=== PATIENT | female | born 1935 | race Caucasian/White ===

== ENCOUNTER 2016-12-30 22:04 | Observation (INO) | payer MEDICARE, OTHER ==
[~2016-12-30] VITALS: Ht 154.9 cm; Wt 70.2 kg
--- NOTE | ~2016-12-30 | CON ---
PATIENT'S NAME: DEVONTE ROOT [facility] AGE: 81 Y [address] ROOM: [id number] [place], [place] [address] LOCATION: GPCU ADMIT DATE: 12/30/2016 Consultation DISCHARGE DATE: FAMILY PHYSICIAN: LARRY DEE MD ATTENDING PHYSICIAN: LARRY DEE DATE OF CONSULTATION: 12/30/2016 TIME SEEN: 11:00 p.m. HISTORY OF PRESENT ILLNESS: Ms Root is a healthy 81-year-old female with a prior medical history of some mild hypertension on losartan. She rarely had any medical history other than brief admission in the emergency room for a pneumonia back in November. The patient states that she was in her usual state of health this evening, actually had a dinner with her , and multiple persons from the clergy over her home. She had a nice dinner and after cleaning the dishes, went to watch television. While watching television, she noted that she could not get words out and her words were confused. Syntax of the words were completely mixed up and she had neologisms for many of the words. Her speech really was not slurred, but more consistent with an aphasia. She came in to the emergency room for evaluation about 2 hours after the event and the aphasia was still present, but much more mild. She scored a 2 on the NIH stroke scale and I scored her a 1 just for the subtle aphasia. She did not have any weakness of the face or of the limbs. No evidence of even a pronator drift. She was noted to be in sinus rhythm at 69 to 70 beats per minute. Occasional PAC were seen on the rhythm, but otherwise the rhythm remained stable. Blood pressure was elevated to 179 systolic. She was afebrile. She was alert and oriented and was able to speak in full sentences, but had clearly some difficulty in word finding at times. Due to the fact that the patient was making rapid recovery and only had a very subtle word-finding deficit, but was able to read full sentences, identify objects, and do cross-body commands very well. She would not be a candidate for tPA. CAT scan of the brain did not show any evidence of a stroke nor any evidence of a bleed. There was an increased signal of hyperdensities seen in the right frontal region of the brain likely consistent with the patient having a coil placed a number of years ago, perhaps nearly 10 years ago. The rest of the brain appeared to be within normal limits for the patient of 81 years old. PRIOR MEDICAL HISTORY: She has a history of hypertension. MEDICATIONS: She is maintained on: PATIENT'S NAME: DEVONTE ROOT [facility] AGE: 81 Y [address] ROOM: [place] [address] LOCATION: GPCU ADMIT DATE: 12/30/2016 Consultation DISCHARGE DATE: FAMILY PHYSICIAN: LARRY DEE MD ATTENDING PHYSICIAN: LARRY DEE 1. Losartan. 2. Baby aspirin 81 mg p.o. daily. ALLERGIES: SHE HAS NO KNOWN DRUG ALLERGIES. FAMILY HISTORY: Noncontributory here. She is for 63 years. She had 1 adopted son who recently became estranged from her and her . She was born in [place] with her and resides here in [place]. She is under the care of Dr. Dee. REVIEW OF SYSTEMS: The patient has a mild history of hypertension, otherwise is healthy. She is active. She has no evidence of dementia. She presented with acute onset of only an aphasia this evening with difficulty with mixing up solely words, difficulty with getting out particular words, but not having slurring, but actual syntax of words and context of words were getting mixed easily. When I saw the patient, she scored a 1 for basic mild aphasia. She presented with an elevation in her blood pressure of 179 systolic. She is otherwise doing better now and was conversational. She had no new evidence of any weakness or sensory numbness. PHYSICAL EXAMINATION: VITAL SIGNS: Revealed a pulse of 69 and regular; respiration rate 16; blood pressure 179/98; temperature is afebrile. NEUROLOGICAL: Cranial nerves 2 through 12 was intact. Motor exam revealed normal bulk and tone of the upper and lower extremities proximally and distally. There was no evidence of any pronator drift. There is full power in the proximal and distal muscles of 5/5 grade. Normal sensory exam to light touch. Rapid alternating hand movements were normal. Normal kapigs-od-toxt and uwlr-im-uabw without any evidence of dysmetria. IMPRESSION: Likely based upon the patient's symptoms. She still does have some subtle signs of aphasia. She may have had a small stroke into the left brain, potentially into the left insular of the brain or some subcortical regions such as the thalamus. However, this would not show up on the CAT scan. Because of the history of a metallic coil, she cannot have an MRI, and she is fairly clear to that though we may be able to check with her surgeon, Dr. Jordi Cha in [place] where the coil was placed at least 10 years ago, though it is not believed to be compatible with an MRI. I would assume that this was a small stroke to the insular and there is the likelihood that it may have been set off by an arrhythmia, though the patient is in sinus rhythm, she will be monitored on the floor with telemetry. If no evidence of arrhythmia PATIENT'S NAME: DEVONTE ROOT [facility] AGE: 81 Y [address] ROOM: [id number] [place] [id number] [facility] AD[facility] DATE: 12/30/2016 Consultation DISCHARGE DATE: FAMILY PHYSICIAN: LARRY DEE MD ATTENDING PHYSICIAN: LARRY DEE is found, she still should be considered for an event monitor for course of at least 4 weeks. I recommend that she continue with her baby aspirin at this time. We will do a basic carotid ultrasound study though this is not necessarily urgent at this time nor would an echocardiogram be necessarily absolutely urgent at this workup. Since the patient does have still some neurological deficits, I did tell her that her aphasia may wax and wane during the course of the evening. We will give her IV fluids to maintain her blood pressure at least overnight in a range of 150s to 180. We will follow up with Ms Root on neurologic consultation in the a.m. MD ANNEL CAMPBELL/madelynl /[id number] d: 12/31/16 0632 t: 01/10/17 1544, CONSULTATION REPORT
--- NOTE | ~2016-12-30 | ER ---
PATIENT'S NAME: DEVONTE HEATON [facility] AGE: 81 Y [address] ROOM: [place] [address] LOCATION: GPCU ADMIT DATE: 12/30/2016 ER/Outpatient Report DISCHARGE DATE: FAMILY PHYSICIAN: LARRY DEE MD ATTENDING PHYSICIAN: LARRY DEE Time of Arrival: 2204 hours. Time of Evaluation: 2204 hours. CHIEF COMPLAINT: Slurred speech. HISTORY OF PRESENT ILLNESS: The patient's reports that they had a big day with family today. They had cooked a bunch of food and had a big dinner tonight and then around 8 o'clock, the patient began complaining of a headache and he noticed that she was having difficulty talking. She could not get her words formed and out. She was aware of the fact that she was not expressing herself appropriately and would have to stop and think about what it was she wanted to say. She said the headache is better at this time, approximately 2 hours later from the onset of symptoms, but she continues to have difficulty talking. She denies having any pain, has not had any chest pain. Does not feel short of breath. Has not had any vision changes. Denies any difficulty swallowing. Has not felt nauseated. Has not vomited. Denies being dizzy. Has not had any change in her ability to move her extremities or to walk. MEDICATIONS: On her chart and reviewed by me. ALLERGIES: ON HER CHART AND REVIEWED BY ME. PAST MEDICAL HISTORY: Valley fever, hypertension, diverticulosis, diverticulitis, right breast cancer, hypertension, cerebral aneurysm. PAST SURGERIES: Include coil for a brain aneurysm, cholecystectomy, appendectomy, right breast lumpectomy, right lung lobectomy, heart catheterization, hysterectomy. SOCIAL HISTORY: She lives at home with her . She quit smoking 20 years ago. Denies use of drugs. She has alcohol on a rare basis. ROS: PATIENT'S NAME: DEVONTE HEATON [facility] AGE: 81 Y [address] ROOM: [place] [address] LOCATION: GPCU ADMIT DATE: 12/30/2016 ER/Outpatient Report DISCHARGE DATE: FAMILY PHYSICIAN: LARRY DEE MD ATTENDING PHYSICIAN: LARRY DEE All negative other than those mentioned in the HPI. PHYSICAL EXAMINATION: VITAL SIGNS: She weighed 70.3 kg; blood pressure 179/98; pulse is 76; respirations 16; temperature of 98.1, tympanic; O2 saturations 97% on room air. GENERAL: She is awake, alert, oriented x4. SKIN: [place], warm, and dry. RESPIRATIONS: Even and nonlabored. HEENT: Pupils are equal and reactive to light. Extraocular movement is intact. She has symmetrical raising of her eyebrows. Closes her eyes tightly symmetrically. Her smile is symmetrical. When doing the NIH stroke scale, she is able to pass everything except for the language. She knew the President was Trump, but she could not get the word Trump out and she had difficulty stating the names of some of the pictures. She states, like with the hammock that it was something that you sleep in, but it took her a while to come up with a word hammock. She had no drift of her arms, no drift of her legs. HEART: Regular rate and rhythm. LUNGS: Clear throughout. ABDOMEN: Soft and nondistended. Bowel sounds are present. LABORATORY DATA AND X-RAYS: IMPRESSION: Aphasia EMERGENCY DEPARTMENT COURSE: Saline lock was initiated. Lab was drawn. CBC is within normal limits. Renal panel: Sodium is 140, potassium is 4.0, chloride are 106. Her BUN is 17, creatinine is 0.7. Troponin is less than 0.040. EKG shows sinus rhythm with first-degree AV block. The patient was to CT scan. CT reports no acute intracranial process. DISPOSITION/FOLLOW-UP: Dr. Edgar was contacted. He did come in and examine the patient. Her NIH stroke scale for me was 2, Dr. Edgar got 1. She continued to deny any chest pain. Does have a mild headache. She was given Tylenol 1000 mg for that. Fluids of normal saline at [address] Dee was contacted. The patient to be admitted and consult with Dr. Edgar. The patient and family are aware of plan of care. AMANDA VERMA APRN FOR FÉLIX GREWAL MD PATIENT'S NAME: DEVONTE HEATON [facility] AGE: 81 Y [address] ROOM: [address] [address] [facility] AD[facility] DATE: 12/30/2016 ER/Outpatient Report DISCHARGE DATE: FAMILY PHYSICIAN: LARRY DEE MD ATTENDING PHYSICIAN: LARRY DEE/madelynl /[id number] d: 12/31/16 0557 t: 01/02/17 1925, OUTPATIENT REPORT
[2016-12-30 22:26] LABS: BASOPHIL # 0.2 K/uL (0.0-0.2); BASOPHIL % 1.6 %; EOSINOPHIL # 0.3 K/uL (0.0-0.5); EOSINOPHIL % 3.2 %; HEMATOCRIT 42.2 % (30.0-46.0); HEMOGLOBIN 14.3 g/dL (10.0-15.0); IMMATURE GRANULOCYTE % 0.2 %; MCHC 33.9 gm/dL (32.0-36.5); MCV 94.4 fl (83.0-98.0); MONOCYTE # 0.9 K/uL (0.0-1.0); MONOCYTE % 8.6 %; MPV 10.6 fl (9.4-12.4); NEUTROPHIL # (ANC) 5.7 K/uL (1.8-7.8); NEUTROPHIL % 56.4 %; NRBC % 0 /100WBC (0-0.00); PLATELET COUNT 231 K/uL (150-450); RBC 4.47 M/uL (3.00-5.00); RDW-CV 12.2 % (11.9-14.6); WBC 10.1 K/uL (4.0-11.0)
[2016-12-30 22:33] LABS: PROTIME 10.1 SECONDS (9.6-11.1); PTT 29 SECONDS (25-32)
[2016-12-30 22:42] LABS: ALBUMIN 4.1 gm/dL (3.5-5.0); BLOOD UREA NITROGEN 17 mg/dL (6-24); CALCIUM 10.3 mg/dL (8.5-10.5); CHLORIDE 106 mMol/L (96-110); CO2 22 mMol/L (22-32); CREATININE 0.7 mg/dL (0.5-1.1); ESTIMATED GFR (MDRD EQUATION) > 60; SODIUM 140 mMol/L (135-145)
[2016-12-31] MEDS ORDERED: COZAAR50 MG PO
--- NOTE | 2016-12-31 01:43 | NUR ---
Pt admitted from ED via . Transported by transport staff. Pt assisted to bed from . NS 250 bolus infusing. VS taken. Con't on RA. Only skin issues noted was scab to back of head-pt states from hairspray/shampoo. NIH scale 3. NTU RN to evaluate as well. MD Gentile called for orders.
--- NOTE | 2016-12-31 04:49 | NUR ---
Pt currently obs status. VSS on RA, afebrile. Pt admitted post TIA-still suffereing from aphasia/word salad this am. SBA with FWW to RR. SL 18g to RAC.needs home meds addressed by rx. Need data base 1 finished when family is here as pt unable to complete d/t word salad. Plan: Leila/Herve to see today and form treatment plan
[2016-12-31] MEDS ORDERED: FISH OIL 1,0001 EAC1 PO (09:22)
[2016-12-31] MEDS ORDERED: ROSUVASTATIN CAL5 MG PO (09:22)
[2016-12-31] MEDS ORDERED: ASCORBIC ACID500 MG PO (09:23)
[2016-12-31] MEDS ORDERED: VITAMIN D1000 UNIT PO (09:23)
[2016-12-31] MEDS ORDERED: VITAMIN E400 UNI2 PO (09:24)
[2016-12-31] MEDS ORDERED: TYLENOL EXTRA500 MG PO (09:24)
== END 2016-12-31 15:40 | disposition disaster alternative care site (69) ==
LOC: GMED 22:04 → GPCU 23:30
PROVIDERS: Emergency Medicine; ADMIT Family Medicine
DX: G45.9 Transient cerebral ischemic attack, unspecified (principal); R47.01 Aphasia; I10 Essential (primary) hypertension; Z79.82 Long term (current) use of aspirin; Z79.899 Other long term (current) drug therapy; Z88.1 Allergy status to other antibiotic agents; Z88.2 Allergy status to sulfonamides; Z88.8 Allergy status to other drugs, medicaments and biological substances
CPT/HCPCS: G0378; G8978; G8979; G8980; G8993; G8994; G8995; J7050

== ENCOUNTER 2017-01-03 16:42 | Inpatient (IN) | payer MEDICARE, OTHER ==
[~2017-01-03] VITALS: Ht 160 cm; Wt 66.9 kg
--- NOTE | ~2017-01-03 | CON ---
PATIENT'S NAME: DEVONTE HEATON [facility] AGE: 81 Y [address] ROOM: [place] [address] LOCATION: GNTU ADMIT DATE: 01/03/2017 Consultation DISCHARGE DATE: 01/09/2017 FAMILY PHYSICIAN: LARRY HERNANDEZ MD ATTENDING PHYSICIAN: THELMA HERNANDEZ Corrected signature line 01/10/17 AO DATE OF CONSULTATION: 01/05/2017 REFERRING PHYSICIAN: Darwin Matias MD LOCATION: Neurotrauma Unit, room 6230. REFERRING PROVIDER: Dejan Carey MD CHIEF COMPLAINT: Palliative care referral for goals of care discussion and tube feeding discussion with family. HISTORY OF PRESENT ILLNESS: The patient is an 81-year-old female with a history of hypertension, a remote history of a cerebral aneurysm, and a recent observation admission to the hospital for TIA workup. The patient was brought to the emergency room by her after she was noted to have difficulties expressing herself and some confusion. 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 At the time of this consult, the patient is in the neuro trauma unit. She has severe aphasia. She is able to answer a few yes/no questions. She tracks with her eyes, is quite drowsy. Does not consistently follow commands. She does have right-sided neglect as well as right-sided weakness. She had recently gone down for a modified barium swallow study, which was positive for aspiration of all consistencies except for semisolid foods. Her family is at bedside and are requesting assistance with goals of care conversation. PREVIOUS SURGICAL HISTORY: 1. Cerebral coil. 2. Right lung resection. 3. Cholecystectomy. 4. Appendectomy. 5. Hysterectomy. 6. Bilateral cataracts. 7. Colon resection for diverticuli. PAST MEDICAL HISTORY: PATIENT'S NAME: DEVONTE HEATON [facility] AGE: 81 Y [address] ROOM: [place] [address] LOCATION: GNTU ADMIT DATE: 01/03/2017 Consultation DISCHARGE DATE: 01/09/2017 FAMILY PHYSICIAN: LARRY HERNANDEZ MD ATTENDING PHYSICIAN: THELMA HERNANDEZ 1. Hypertension. 2. History of breast cancer. 3. History of cerebral aneurysm status post coiling. 4. Hypercholesterolemia. 5. Depression. MEDICATIONS: Home Medication List: 1. Tylenol 1000 mg every 6 hours as needed. 2. Ascorbic acid 500 mg p.o. daily. 3. Aspirin 81 mg p.o. daily. 4. Vitamin D3 1000 units p.o. daily. 5. Vitamin B12 500 mcg p.o. daily. 6. Cozaar 50 mg p.o. daily. 7. Fish oil 2000 mg p.o. daily. 8. Rosuvastatin 5 mg p.o. daily. 9. Vitamin E 400 mg p.o. daily. ALLERGIES: TO IODINE, SULFA, DOXYCYCLINE, CLINDAMYCIN, ADHESIVE TAPE, CLARITHROMYCIN, CEFPROZIL, AZITHROMYCIN, LEVOFLOXACIN, MELOXICAM, TERBINAFINE. SOCIAL HISTORY: The patient is and lives with her here in [place]. They have one adopted son, who lives in [place], have one grandson and one great grandson. She has a history of smoking two packs a day for 40 years. She quit a number of years ago. Has a past history of alcohol use, none recent. FAMILY HISTORY: Mother had a history of lung resection and father had heart disease. She also has a younger brother, who had cancer. REVIEW OF SYSTEMS: All other systems reviewed and are negative except for as noted in HPI. PHYSICAL EXAMINATION: VITAL SIGNS: Blood pressure 165/70, heart rate 72, temperature 98.6, respirations 23, O2 saturations 96% on room air. GENERAL: Reveals a drowsy though easily arousable, elderly white female, who is lying in the hospital bed, does not appear to be in any acute distress. She is severely aphasic. She does not verbalize anything for me. HEENT: Normocephalic, atraumatic. Pupils are equal, left is reactive, right is sluggish. She does have a slight facial droop. She has right-sided neglect. Tongue and mucous membranes are moist and pink. Dentition is adequate. PATIENT'S NAME: DEVONTE HEATON [facility] AGE: 81 Y [address] ROOM: [place] [address] LOCATION: [facility] ADMIT DATE: 01/03/2017 Consultation DISCHARGE DATE: 01/09/2017 FAMILY PHYSICIAN: LARRY HERNANDEZ MD ATTENDING PHYSICIAN: THELMA HERNANDEZ CARDIOVASCULAR: Heart tones are regular rate and rhythm. I am not able to note any murmur. RESPIRATORY: Respirations are regular and nonlabored. Lung sounds are clear to auscultation bilaterally. She does have a moist cough at times. GASTROINTESTINAL: Abdomen is soft, nontender. Bowel sounds are present. GENITOURINARY: Guzman catheter is intact with adequate amounts of yellow urine. MUSCULOSKELETAL: No significant joint deformities. Peripheral pulses are strong and equal bilaterally. There is no clubbing, cyanosis, or edema. SKIN: Warm and dry. No lesions or rashes. NEUROLOGIC: The patient has right-sided weakness, right-sided neglect. Pupils are equal, but right side is sluggish. She is severely aphasic. IMPRESSION AND PLAN: 1. Aphasia, speech therapy is on board. 2. Dysphagia, speech therapy is on board. Recent modified barium swallow results reviewed. 3. 4. Weakness, PT/OT on board. 5. Code status. The patient is a DNR/DNI. Does have an advance directive on her chart, which states that the patient does not want tube feedings or any artificial nutrition that would prolong her life in a terminal or debilitated state. Family have reviewed her advance directive and are wishing to honor her stated wishes. I did meet with the patient's as well as son, opaoofub-ko-tic, and grandson, discussed their understanding of her condition and prognosis for recovery. They seem to have a very good understanding of what is going on. They do not think that given the patient's state and poor likely for good recovery, she would not want artificial nutrition to prolong her life, which is what is noted in her advance directive. Family ask about other feeding options as they do not want her to starve to either. Discussed the results of the modified barium swallow study, which showed aspiration of all consistencies except semi solid foods, discussed the option of very careful hand feeding but that the patient would still remain at a very high risk for aspiration despite careful hand feeding. I discussed with the family that aspiration would most likely result in pneumonia and an eventual . At this point, family states they are willing to take this risk as they do not feel as she would be happy with this type of lifestyle or this quality of life. Discussed with the family the possibility of placing a short-term [place] and giving her a chance of some rehabilitation, provided education that this would not be a permanent thing and we would give her a chance to see how well she is going to do. Family at this point are feeling that would only prolong this whole situation. The family is stating that at this point goal is for comfort and to not prolong life. Given all this, I did discuss hospice services at a fdc versus a skilled stay. Family plans to look at nursing homes later today. I did update PATIENT'S NAME: DEVONTE HEATON [facility] AGE: 81 Y [address] ROOM: [place] [address] LOCATION: [facility] ADMIT DATE: 01/03/2017 Consultation DISCHARGE DATE: 01/09/2017 FAMILY PHYSICIAN: LARRY HERNANDEZ MD ATTENDING PHYSICIAN: THELMA HERNANDEZ care center manager, [place] to this. I also coordinated care with speech therapy, care management, and hospitalist services, discussed with them my discussion with the family as far as the goal being for comfort and they would like to look at trying to start the patient on some sort of diet once we feel it is safe as possible. At this point, it sounds as though family is most likely looking at hospice services at time of discharge, but we will see how the next few days go as far as whether the patient may be able to participate in some therapies. We will continue to follow this patient and family for continued goals of care support and emotional support. Family is very understanding to this situation but is also quite emotional at the same time. Total visit was 50 minutes. Greater than 50% of this time was spent providing education, counseling, and emotional support. Thank you for allowing me to assist this patient and family. NETTE DE LOS SANTOS NP FOR MD SARAH BURNS/waleska /[id number] CC: Dejan Carey MD Corrected signature line 01/10/17 AO d: 01/06/17 1906 t: 01/18/17 0741, CONSULTATION REPORT
--- NOTE | ~2017-01-03 | DS ---
PATIENT'S NAME: DEVONTE HEATON [facility] AGE: 81 Y [address] ROOM: [facility] [place], [place] [address] LOCATION: GNTU ADMIT DATE: 01/03/2017 Discharge Summary DISCHARGE DATE: 01/09/2017 FAMILY PHYSICIAN: Aldo Dee MD ATTENDING PHYSICIAN: Thelma Babcock ADDENDUM: Please refer to dictation by Dr. Palencia for hospital course. In summary, the patient was able to be transferred to transitional care unit on comfort measures on 01/09/2017. Hospitalist will continue to follow as well as Palliative Care. MEDICATIONS AT THE TIME OF DISCHARGE: 1. Acetaminophen 650 mg rectally q.4 hours p.r.n. 2. Acetaminophen 650 mg orally q.4 hours p.r.n. 3. Atropine drops 1 to 2 q.4 h. p.r.n. 4. Dulcolax 10 mg rectally p.r.n. 5. Haloperidol 1 mg p.o. q.1 hour p.r.n. 6. Haloperidol 1 mg subcu q.1 hour p.r.n. 7. Haloperidol 1 mg IV q.1 hour p.r.n. 8. Levsin 0.125 sublingual q.4 hours p.r.n. 9. Lorazepam 0.5 mg IV q.4 hours p.r.n. 10. Lorazepam 0.5 mg q.2 hours p.o. or sublingual p.r.n. 11. Morphine sulfate 1 to 2 mg q.1 hour subcu p.r.n. 12. Morphine sulfate 5 mg p.o. or sublingual q.1 hour p.r.n. 13. Morphine sulfate 2 mg IV q.1 hour p.r.n. 14. Phenergan 12.5 q.12 hours rectally p.r.n. We do appreciate participating in this patient's care, and thank you very much for the ability to serve them while hospitalized at [facility]. Please refer to Dr. Palencia's dictation for time of service. ARUN MARISCAL FOR THELMA BABCOCK MD CINDA/modl /[id number] d: 01/10/17 1117 t: 01/11/17 1030, DISCHARGE SUMMARY
--- NOTE | ~2017-01-03 | DS ---
PATIENT'S NAME: DEVONTE HEATON [facility] AGE: 81 Y [address] ROOM: [place] [address] LOCATION: [facility] ADMIT DATE: 01/03/2017 Discharge Summary DISCHARGE DATE: FAMILY PHYSICIAN: Aldo Dee MD ATTENDING PHYSICIAN: Tonny Babcock This is an interim discharge summary given that I will not be here tomorrow because we changed shift. This summary will serve as the interim summary for the hospitalist, who is coming on tomorrow to take care of the patient. Full updates or changes and actual date of discharge and discharge medication will be dictated by the discharging hospitalist. Date of discharge to be determined. DISCHARGE DIAGNOSES: 1. 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 2. 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 3. Severe left internal carotid artery stenosis and possibly total occlusion. PAST MEDICAL HISTORY: 1. Hypertension. 2. History of breast cancer. 3. History of TIA. 4. Hyperlipidemia. 5. Diverticulosis. 6. History of cerebral aneurysm, status post clipping in the past. FOLLOWUP PLAN: The patient is currently DNR and DNI and also on comfort measure only. Palliative Care has already been following up with the patient. The plan will be continue to touch base with the Palliative Care on January 09, 2017, regarding further plan of care including disposition to transitional care unit to continue comfort measure only or looking for hospice care in another place or keep the patient here, continue comfort measure only care in the neuro trauma unit. Please also touch base with the family member including the patient's and the patient's son. I have already spoken to the patient's , and the patient's son, who are all in agreement with the current comfort measure only care. PATIENT'S NAME: DEVONTE HEATON [facility] AGE: 81 Y [address] ROOM: [place] [address] [facility] ADMIT DATE: 01/03/2017 Discharge Summary DISCHARGE DATE: FAMILY PHYSICIAN: Aldo Dee MD ATTENDING PHYSICIAN: Tonny Babcock DISCHARGE MEDICATIONS: Discharge medications will be dictated by the discharging hospitalist on the actual day of discharge. INVESTIGATIONS DURING HOSPITALIZATION: 1. Chest x-ray on January 03, 2017, shows stable, no acute chest. 2. CT of the brain without contrast on January 03, 2017, shows evolving infarct in the left middle cerebral distribution at the parietal lobe. No hemorrhage. 3. CT of the brain without contrast on January 04, 2017, shows large evolving ischemic infarct in the left posterior cerebral. Infarct territory is more prominent than was evident on a day prior. No hemorrhage. 4. Modified barium swallow test on January 04, 2017, shows positive for aspiration. 5. Head CT without contrast on January 07, 2017, shows large evolving ischemic infarct in the left hemisphere and progress with more infarct territory evident compared with 3 days ago and further density of infarct resulting in swelling and early mass effect, which is worsened. There may be small petechial hemorrhagic transformation within the infarct territory of the left occipital lobe. LABORATORY DATA: Troponin on admission less than 0.04. On admission, white blood cell 8.8, hemoglobin 14.2, hematocrit 42.3, MCV 94.8, platelet 243. On January 05, 2017, white blood cell 11.9, hemoglobin 13.6, hematocrit 40.1, MCV 94.4, platelet 222. On admission, glucose 112, BUN 15, creatinine 0.6, sodium 142, potassium 4.1, chloride 110, CO2 of 25, calcium 10.3. On January 05, 2017, glucose 118, BUN 8, creatinine 0.5, sodium 141, potassium 3.7, chloride 110, CO2 of 23, calcium 9.3. GFR more than 60 on admission and also on January 05, 2017. LDL 66, HDL 52, triglyceride 118, total cholesterol 141 on January 04, 2017. INR 0.9 on admission. Urinalysis, negative for UTI. CONSULTATION INVOLVING CARE: 1. Palliative Care. 2. Neurology, Dr. Edgar. 3. Hospitalist Team. 4. Vascular Surgery, Dr. Mathtews. 5. Rehabilitation physician, Dr. Matias. ADMISSION HISTORY AND HOSPITAL COURSE: For the complete history and physical, refer to history and physical dictated on the day of admission by Dr. Babcock on January 03, 2017. In summary, this is an 81-year-old female with past medical history as mentioned above, who was recently admitted here for TIA workup and was discharged and came back here with an over a day of confusion and slurred PATIENT'S NAME: DEVONTE HEATON [facility] AGE: 81 Y [address] ROOM: [place] [address] LOCATION: [facility] ADMIT DATE: 01/03/2017 Discharge Summary DISCHARGE DATE: FAMILY PHYSICIAN: Aldo Dee MD ATTENDING PHYSICIAN: Tonny Babcock and was brought here for evaluation and was admitted for the diagnoses mentioned in the discharge diagnoses. 1. Regarding her large ischemic cerebrovascular accident in left temporal lobe, left parietal and left occipital lobe, and left insula, and left caudate with petechial hemorrhagic transformation in the left occipital lobe with brain swelling and early mass effect in the left temporal lobe: The patient has a poor prognosis. The patient deteriorated quickly during this admission. The patient was initially treated with standard ischemic stroke protocol with permissive hypertension as well as aspirin and also statin. The patient was also getting Physical Therapy and Occupational Therapy. The patient's condition deteriorated quickly. The patient was never verbal and never oriented x3 since admission. Initially, the patient was going to get a full stroke workup including transthoracic echo as well as CTA of the carotid arteries. However, given that the patient's condition deteriorated quickly and the prognosis is very guarded, therefore, family meeting took place, and I personally spoke to Dr. Edgar as well with the patient, the patient's , and the patient's son. In this case, the patient's son is the power of managing attorney. Given that the patient is nonverbal and not following commands and refused to eat and also failed modified barium swallow test with high aspiration risk and not following commands, Palliative Care was also consulted, and after the long family meeting, both the patient's and the patient's son, who is the power of managing attorney, all agreed to move towards comfort measure only. The patient's and the patient's son were clearly asked if they wanted us to continue aggressive care including Neurosurgery consult, however, due to the poor condition and the poor quality of life, both the patient's son and the patient's did not want to pursue any more further imaging tests or any more invasive procedures or testings or treatments. Therefore, the patient was put on comfort measure only, and the plan right now will be followup with Palliative Care on Monday, January 09, 2017, regarding next step in care including disposition either to transitional care unit or to outside hospice care or to home hospice care or any other option regarding her planning. MRI was never performed given that the patient had clips placed in her brain before and prior history of cerebral aneurysm. Therefore, MRI was contraindicated. CTA was also not performed given that, at this point, the patient is on comfort measure only. There is no point in moving forward with a CTA of the carotid arteries because the patient is already comfort measure only. The patient will not be transferred to the rehab facility [facility] given that the patient is comfort measure only and recovery of her neurological function at this moment is poor. 3. I have updated the patient's son and the patient's on the phone PATIENT'S NAME: DEVONTE HEATON [facility] AGE: 81 Y [address] ROOM: [place] [address] LOCATION: [facility] ADMIT DATE: 01/03/2017 Discharge Summary DISCHARGE DATE: FAMILY PHYSICIAN: Aldo Dee MD ATTENDING PHYSICIAN: Tonny Babcock several times regarding her condition, and both still agree to move forward with the comfort measure only. Therefore, the patient is currently on comfort measure only. Any further changes or updates will be dictated by the hospitalist working next week. Time spent on the day of dictation and taking care of the patient 45 minutes including updating the patient's son and the patient , and confirming they wanted to move forward with the comfort measure only and addressing all of their questions and concerns to their satisfaction. DANYELLE SULLIVAN MD CC/modl /[id number] d: 01/08/172210 t: 01/19/17 0213, DISCHARGE SUMMARY
--- NOTE | ~2017-01-03 | HP ---
PATIENT'S NAME: DEVONTE HEATON [facility] AGE: 81 Y [address] ROOM: [address] [address] LOCATION: [facility] ADMIT DATE: 01/03/2017 History & Physical DISCHARGE DATE: FAMILY PHYSICIAN: LARRY HERNANDEZ MD ATTENDING PHYSICIAN: THELMA HERNANDEZ DATE OF SERVICE: CHIEF COMPLAINT: Acute CVA, global aphasia. HISTORY OF PRESENT ILLNESS: This is an 81-year-old female with history of hypertension, remote history of cerebral aneurysm, and recent admission and discharge from the hospital for TIA workup. She was brought to the emergency room by her after she was noted to have difficulty in her speech, since early hours of this morning. The patient upon arrival to the emergency room, later in the afternoon, was noted to have trouble expressing herself and getting her words out and subsequently was noted to be confused and unable to communicate at all. During my evaluation, the patient was awake; however, did not follow any command, and was not able to tell me her name or did not appear to look like she was comprehending my interaction with her. The patient's was sitting by the bedside, tells me that the last time he had seen her in her usual stage of health was yesterday afternoon, and onset of her symptoms at this time around was later in the evening yesterday, which significantly got worse in the morning. The patient had presented with a slurring of her speech on Monday and was admitted overnight for observation for TIA stroke workup and was discharged the next day. PAST MEDICAL HISTORY: Hypertension, history of breast cancer, history of cerebral aneurysm. SOCIAL HISTORY: The patient lives at home with her , has a remote history of smoking, no use of alcohol or drugs. REVIEW OF SYSTEMS: Unable to be conducted due to the patient's state of mind. PHYSICAL EXAMINATION: VITAL SIGNS: Blood pressure 143/64, pulse 77, respiratory rate 12, temperature 98.5, and saturating 98% on room air. GENERAL: The patient is awake, but not alert and oriented. HEENT: Dry mucous membranes. No conjunctival pallor or scleral icterus noted. SKIN: Without rash or lesions. PATIENT'S NAME: DEVONTE HEATON [facility] AGE: 81 Y [address] ROOM: [address] [address] LOCATION: [facility] ADMIT DATE: 01/03/2017 History & Physical DISCHARGE DATE: FAMILY PHYSICIAN: LARRY HERNANDEZ MD ATTENDING PHYSICIAN: THELMA HERNANDEZ HEART: S1, S2, regular rate and rhythm. LUNGS: Clear to auscultation bilaterally. ABDOMEN: Soft, nontender, and nondistended. NEURO: The patient exhibits global aphasia, and was confused and unable to follow command. MUSCULOSKELETAL: No joint redness, effusion, or tenderness elicited. LABORATORY DATA: A CT scan findings showing an evolving infarct on the left and MCA distribution in the parietal lobe. ASSESSMENT AND PLAN: 1. Acute Cerebrovascular accident. The patient at presentation outside TPA window. The patient was also expressing global aphasia and not responsive to verbal commands at this point. The patient was evaluated by Dr. Edgar during emergency room and shortly following her admission as well. The patient was discharged this past weekend, after a brief hospitalization for a TIA workup after she presented with slurred speech. Another time she was noted to have a near complete occlusions of her left internal carotid artery. The patient will be managed supportively, will watch overnight, and treat with permissive hypertension as well as aspirin rectally, and will follow clinical course. Prognosis overall appears to be poor at this point, but its overall difficult to assess in the first 48 hours. The patient has had a discussion with Dr. Edgar and the patient code status right now is DNR/DNI. 2. Hypertension. We will allow for permissive hypertension and only treat for blood pressures and systolics of greater than 220. 3. Global aphasia. This is related to a problem number one. 4. Deep venous thrombosis prophylaxis. We will use SCDs. MD LINDSEY GARIBAY/modl /[id number] D: T: HISTORY & PHYSICAL
--- NOTE | ~2017-01-03 | CON ---
PATIENT'S NAME: DEVONTE ROOT [facility] AGE: 81 Y [address] ROOM: [id number] [place], [place] [address] LOCATION: [facility] ADMIT DATE: 01/03/2017 Consultation DISCHARGE DATE: FAMILY PHYSICIAN: LARRY HERNANDEZ MD ATTENDING PHYSICIAN: THELMA HERNANDEZ DATE OF CONSULTATION: 01/03/2017 REFERRING PHYSICIAN: Darwin Matias MD The patient was seen in neurologic consultation on 01/03/2017 at 0530 hours. HISTORY OF PRESENT ILLNESS: Patient presents as a stroke code presentaion. This is an 81-year-old female, known to me, when she presented with some mild aphasia 4 days ago. She had a brief stay here in the hospital. Upon her discharge, there was evidence found that she had a complete left ICA occlusion. The plan for her was to have a followup with Dr. Matthews. The ultimate plan for her is not known to myself at this time. Apparently, she re- presents with worsening of her aphasia, right hemianopsia, and a left gaze preference. She is able to elevate her arms and legs above the bed, but is weakest in her right lower extremity. There is a right hand drift. The patient is unable to read words in sentences, but identifies objects presently. She is alerting, but is unable to answer questions and check her orientation. PRIOR MEDICAL HISTORY: History of hypertension and no history of known CVA. She did have a history of a clipping of an aneurysm apparently in the right brain, this is a metallic clip, for which she cannot have an MRI imaging. FAMILY HISTORY: Noncontributory. SOCIAL HISTORY: She was born and raised in [place], [place]. She is and has one adopted son. She does not smoke or drink alcohol. ALLERGIES: SHE HAS NO KNOWN DRUG ALLERGIES. REVIEW OF SYSTEMS: The patient presents here with a history of mild hypertension. She has no evidence of dementia. She presents with a severe aphasia, left gaze preference, inability to read words or construct sentences. PHYSICAL EXAMINATION: PATIENT'S NAME: DEVONTE ROOT [facility] AGE: 81 Y [address] ROOM: [id number] [place], [place] [address] LOCATION: [facility] ADMIT DATE: 01/03/2017 Consultation DISCHARGE DATE: FAMILY PHYSICIAN: LARRY HERNANDEZ MD ATTENDING PHYSICIAN: THELMA HERNANDEZ GENERAL: The patient is alerting, but cannot answer questions appropriately. VITAL SIGNS: Reveal pulse of 64 and regular, respiration rate 16, blood pressure 160/58, temperature is afebrile. NEURO: Cranial nerves 2 through 12 are intact, but she does have a left gaze preference with a right hemianopsia with evidence for a right visual field ignorance. I do not appreciate any facial droop. Motor exam revealed 5/5 power on upper and lower extremities on the left; in the right lower extremity, there is a drift of her leg; her right upper extremity, she can elevate the arm fairly well though there is some minor hand drift. Sensory exam is intact though she has sensory cortical neglect of her right side due to inability to assess her right visual field. Testing of rapid alternating hand movements and finger testing for dysmetria could not be done due to the patient's poor participation. So, the patient came in today for a stroke code, is noted to have extensive motor and possibly some sensory aphasia, as she often cannot understand the questions asked of her. She is noted to have a fairly significant left parietal stroke that is not acute, but likely occurred upon the day of admission 4 days ago. No evidence of bleeding. The area of the aneurysmal clipping is benign with no evidence of any bleeding around the area. Aneurysmal clip looks hyperdense and clearly seems to be metallic. IMPRESSION: Ms. Devonte Root is an 81-year-old female patient who upon her admission only 4 days ago had a carotid duplex study. She was found to have a severe stenosis in her left internal carotid artery, that was mentioned to be occluded. Furthermore, a comment was that there is evidence of very minimal flow, clearly a low flow state into that artery would cause either a thrombosis to a distal vein or simply put an [id number] embolism with evidence of low flow into the left MCA territory in general. She will have to be evaluated if she would be a surgical candidate for opening up the left MCA, and it is unclear if the vessel being completely or near completely occluded, would be amenable to surgery. We recommended the patient be considered for a load of Plavix to stabilize the plaque present, and I do not believe that this would be a risk for bleeding in this patient who had a prior aneurysmal clipping. We will get Physical Therapy and Speech to try to work with her though at this point, her speech is quite severe. Unfortunately because of the nature of her presenting with the subacute stroke even though with somewhat newer symptoms, she would not be a tPA candidate due to the recent fairly large stroke which would be a nidus for bleeding. We will continue to follow her closely with monitor, just to make sure that we are not missing any atrial fibrillation that would cause a cardioembolic stroke; however, based upon the findings of the severe stenosis, this is likely the association with the patient having a stroke with minimal flow associated with an [id number] embolization. We will continue to follow the patient on the on medical floors. PATIENT'S NAME: DEVONTE ROOT [facility] AGE: 81 Y [address] ROOM: [place] [address] LOCATION: [facility] ADMIT DATE: 01/03/2017 Consultation DISCHARGE DATE: FAMILY PHYSICIAN: LARRY HERNANDEZ MD ATTENDING PHYSICIAN: THELMA HERNANDEZ MD ANNEL CAMPBELL/modl /[id number] d: 01/04/17 0115 t: 01/10/17 1546, CONSULTATION REPORT
--- NOTE | ~2017-01-03 | ER ---
PATIENT'S NAME: DEVONTE HEATON [facility] AGE: 81 Y [address] ROOM: [place] [id number] LOCATION: [facility] ADMIT DATE: 01/03/2017 ER/Outpatient Report DISCHARGE DATE: FAMILY PHYSICIAN: LARRY DEE MD ATTENDING PHYSICIAN: THELMA BABCOCK Time of Arrival: 1643 hours. Time of Evaluation: 1643 hours. CHIEF COMPLAINT: Confusion and aphasia. HISTORY OF PRESENT ILLNESS: The patient was seen here in the ER on Monday night by myself and was admitted by Dr. Edgar for aphasia. Dr. Dee also was involved in the patient's case. reports they went home on Monday because she had improved and was symptom free. reports she was fine all day Monday and Monday, and then Monday night, she started having problems forming her words again. He states today the symptoms have become much more worse, in that she seems more confused than what she had been last night. He says they were scheduled to have more tests done this week. She has not had a fever. Has not complained of any pain. Has not had any nausea, no vomiting. Has not fallen. Has not been injured in anyway according to her . ALLERGIES: SHE HAS MULTIPLE ALLERGIES ON HER CHART AND WERE REVIEWED BY ME. CURRENT MEDICATIONS: On her chart and reviewed by me. PAST MEDICAL HISTORY: Includes a cerebral aneurysm that was repaired over 10 years ago with a coil, Valley fever, hypertension, diverticulosis, diverticulitis, and right breast cancer. PAST SURGERIES: Repair of a cerebral aneurysm around 10 years ago. SOCIAL HISTORY: She lives at home with her . Denies use of tobacco, drugs, or alcohol, according to the . REVIEW OF SYSTEMS: All negative other than those mentioned in the HPI. PATIENT'S NAME: DEVONTE HEATON [facility] AGE: 81 Y [address] ROOM: [address] [address] LOCATION: [facility] ADMIT DATE: 01/03/2017 ER/Outpatient Report DISCHARGE DATE: FAMILY PHYSICIAN: LARRY DEE MD ATTENDING PHYSICIAN: THELMA BABCOCK PHYSICAL EXAMINATION: VITAL SIGNS: She weighed 69.4 kg. Blood pressure was 175/71, pulse was 70, respirations 19, temperature of 97.6, and O2 saturation was 96% on room air. NEUROLOGIC: She is awake. She opens her eyes spontaneously. Speech is difficult to understand. Moves her extremities equally, but does tend to focus towards the left. Pupils are equal and reactive to light. She is not able to follow commands well enough to complete the stroke scale. Stroke alert was called right away. Dr. Edgar was in the hospital, and he did arrive immediately to the stroke alert. LUNGS: Sounds are clear throughout. HEART: Regular rate and rhythm. ABDOMEN: Soft, nondistended. Bowel sounds are present. LABORATORY DATA AND X-RAYS: EKG showed a sinus rhythm with first-degree block. CBC was within normal limits. Chem panel showed sodium 142, potassium of 4.1, chloride of 101. Her BUN is 15 with a creatinine of 0.6. CPK is 53, CK-MB is 1.1, and troponin is less than 0.040. The patient was taken to CT right away. Radiologist reports the patient has a large left parietal infarct that is greater than [address] Edgar agrees with the report. Dr. Dee was contacted; he would like the hospitalist to admit the patient. IMPRESSION: Cerebrovascular accident. PLAN: The patient to be admitted by the hospitalist, Dr. Babcock and Dr. Edgar to follow. Dr. Babcock was made aware of the carotid ultrasound reports from this weekend, in that she has decreased blood flow through the left carotid. The patient's family is aware of the plan of care. AMANDA VERMA APRN FOR MD SHONNA SMITH/[place] /[id number] d: 01/04/17 0144 t: 01/19/17 0702, OUTPATIENT REPORT
--- NOTE | ~2017-01-03 | CON ---
PATIENT'S NAME: DEVONTE HEATON [facility] AGE: 81 Y [address] ROOM: [address] [address] LOCATION: [facility] ADMIT DATE: 01/03/2017 Consultation DISCHARGE DATE: FAMILY PHYSICIAN: LARRY HERNANDEZ MD ATTENDING PHYSICIAN: THELMA BABCOCK REFERRING PHYSICIAN: Darwin Matias MD This is a consult for Dr. Babcock. HISTORY OF PRESENT ILLNESS: This 81-year-old lady, is referred for rehab evaluation, admitted on 01/03/2017 with aphasia and right hemianopsia with left gaze preference with marked weakness, right upper and lower extremity and right facial droop and she is aphasic and apraxic. She was briefly here for a short time few days ago and was found to have left ICA internal carotid artery occlusion and plan to see vascular surgeon for a possible surgery, endarterectomy, however, this new episode happened before they could go to the appointment with the vascular surgeon as planned. PAST MEDICAL HISTORY: Past history of significant: 1. History of hypertension. 2. History of right brain aneurysm metallic clips, recovered well from that. ALLERGIES: SHE IS NOT ALLERGIC TO ANY MEDICATIONS. PHYSICAL EXAMINATION: Now she is alert, not able to evaluate properly if she is oriented. She is aphasic, apraxic, and she at the present time, requiring marked repetition repeatedly to follow instructions. She has right facial droop and she is neglecting the right side severely and tilting her head all the way to the left with right facial droop. Tongue on the right side is not moving that symmetrically with the left side, however, I could not evaluate her soft palate movement well. She seems to be tolerating her saliva well. There is no volitional movement detected in the right upper extremity, however, there is minimum if any trace of volitional movement on the right lower extremity. She requires maximum assistance of two to bring her to a semi-standing position, could not maintain it and she is slouching bad to the right side with her head turned to the left. She has a Guzman catheter at the present time and she seems to be continent of her bowel. PATIENT'S NAME: DEVONTE HEATON [facility] AGE: 81 Y [address] ROOM: [address] [address] LOCATION: [facility] ADMIT DATE: 01/03/2017 Consultation DISCHARGE DATE: FAMILY PHYSICIAN: LARRY HERNANDEZ MD ATTENDING PHYSICIAN: THELMA BABCOCK Vitals are as follows; blood pressure 168/77, temperature 98.4, pulse 71, respirations 18. She is 5 feet and 4 inches tall and weighs 77.6 kg. MEDICATIONS: Currently, she is on: 1. Aspirin. 2. Tylenol. 3. Labetalol. 4. Protonix. 5. NaCl 0.9%. ASSESSMENT AND PLAN: At this time, I feel that we should continue with PT, OT, and speech. We will do a modified barium swallow to see if she is swallowing safely. We will keep her on n.p.o. for the time being until we know the results. We will do E stimulation for specific muscles on the right side upper and lower extremity. We will brace as tolerated as needed also. Please see the orders. I plan to take her for intensive rehabilitation when she is stable provide she is okayed by the admitting physician. Thank you for this referral. I explained everything to her and answered all his questions in detail. He verbalized understanding and agreement with plan of care. MD THAD ZEPEDA/madelynl /[id number] d: 01/04/17 2157 t: 01/06/17 0803, CONSULTATION REPORT
--- NOTE | ~2017-01-03 | CON ---
PATIENT'S NAME: DEVONTE HEATON [facility] AGE: 81 Y [address] ROOM: [place] [address] LOCATION: [facility] ADMIT DATE: 01/03/2017 Consultation DISCHARGE DATE: FAMILY PHYSICIAN: LARRY HERNANDEZ MD ATTENDING PHYSICIAN: THELMA HERNANDEZ DATE OF CONSULTATION: 01/04/2017 REFERRING PHYSICIAN: Darwin Matias MD REASON FOR CONSULT: Left internal carotid artery stenosis. HISTORY OF PRESENT ILLNESS: This is an 81-year-old female admitted to [facility] for acute CVA with aphasia. The patient was recently admitted to [facility] for TIA workup on December 30, 2016. At that time, a carotid duplex was completed on December 31, 2016 revealing left internal carotid artery appearing occluded or evidence of very minimal flow. The patient will need a CTA of the carotids for definite evaluation. She was discharged on December 31, 2016 with improved symptoms. On January 03, 2017, the patient re- presented to the emergency room with increased speech difficulty. The patient is currently being seen on Neurotrauma. CT has revealed large left parietal infarct. The patient is aphasic and unable to answer assessment questions. Her is at bedside. PAST MEDICAL HISTORY: 1. Essential hypertension. 2. Hyperlipidemia. 3. Recent TIA. 4. Breast cancer with radiation. 5. Diverticulosis. PAST SURGICAL HISTORY: 1. Cholecystectomy. 2. Partial lobectomy. 3. Hysterectomy. 4. Salpingectomy. 5. Appendectomy. 6. Lumpectomy. 7. Cerebral aneurysm with coil. 8. Colon resection. FAMILY HISTORY: Father with coronary artery disease and leg amputation. PATIENT'S NAME: DEVONTE HEATON [facility] AGE: 81 Y [address] ROOM: [place] [address] LOCATION: [facility] ADMIT DATE: 01/03/2017 Consultation DISCHARGE DATE: FAMILY PHYSICIAN: LARRY HERNANDEZ MD ATTENDING PHYSICIAN: THELMA HERNANDEZ SOCIAL HISTORY: The patient has an 80-year smoking history with 2 pack per day smoking history for 40 years. She lives at home with her . denies any alcohol or illicit drug use in the patient. CURRENT MEDICATIONS: See medication record. ALLERGIES: IODINE AND IODINE CONTAINING PRODUCTS, SULFA, DOXYCYCLINE, ADHESIVE TAPE, CLARITHROMYCIN, CEFPROZIL, AZITHROMYCIN, AMOXICILLIN, TERBINAFINE, LEVOFLOXACIN, NICKEL, CLAMS, AND SCALLOPS. REVIEW OF SYSTEMS: Deferred. The patient unable to answer questions. PHYSICAL EXAMINATION: VITAL SIGNS: Temperature 98.1, heart rate 68, respiratory rate 18, blood pressure 172/71, and oxygen saturations 95%. GENERAL: The patient is awake and aphasic. SKIN: Warm and pink. No rashes or ulcerations. HEENT: Head: Normocephalic, atraumatic. Ears without drainage. Eyes: Sclerae white. Conjunctivae pink. Nose without drainage. Throat: Oral mucosa pink and moist. No exudate or erythema. NECK: Without adenopathy. No evidence of JVD. RESPIRATORY: The patient with inspiratory and expiratory wheeze and rhonchi. CARDIOVASCULAR: Regular rate and rhythm. No murmur or extra sounds. GASTROINTESTINAL: Bowel sounds active x4. Soft and nontender. EXTREMITIES: Radial, femoral, dorsalis pedis, and posterior tibialis 2+ bilaterally. No cyanosis. No edema. Passive range of motion to right extremities. Active range of motion to left extremities. NEUROLOGICAL: The patient does not move right extremities spontaneously. She is unable to follow commands. DIAGNOSTICS: CT revealing large left parietal infarct. IMPRESSION: 1. Cerebrovascular accident. 2. Left internal carotid artery stenosis. 3. Hypertension. PLAN: Left internal carotid artery stenosis. Carotid duplex suggested left ICA PATIENT'S NAME: DEVONTE HEATON [facility] AGE: 81 Y [address] ROOM: [place] [address] LOCATION: [facility] ADMIT DATE: 01/03/2017 Consultation DISCHARGE DATE: FAMILY PHYSICIAN: LARRY HERNANDEZ MD ATTENDING PHYSICIAN: THELMA HERNANDEZ occlusion or evidence of very minimal flow. The patient would need a CTA of the carotids to further evaluate carotid stenosis. If the left internal carotid artery is occluded, there is no surgical intervention possible; however, if not completely occluded and the patient stabilizes from her acute cerebral vascular accident, she may be a candidate for left carotid endarterectomy. The patient is DNR/DNI. From a vascular standpoint, we recommend CTA of carotids and continuing aspirin and Crestor. Thank you for allowing us to participate in the care of this patient for your consultation. KHADRA BARBA APRN FOR RACHELLE HARTMAN MD TO/waleska /[id number] d: 01/05/17 0002 t: 01/10/17 1604, CONSULTATION REPORT
[~2017-01-03 16:42] MED LIST: ASCORBIC ACID500 MG PO; COZAAR50 MG PO; FISH OIL 1,0001 EAC1 PO; ROSUVASTATIN CAL5 MG PO; TYLENOL EXTRA500 MG PO; VITAMIN D1000 UNIT PO; VITAMIN E400 UNI2 PO
[2017-01-03 17:05] LABS: BASOPHIL # 0.1 K/uL (0.0-0.2); BASOPHIL % 1.6 %; EOSINOPHIL # 0.2 K/uL (0.0-0.5); EOSINOPHIL % 2.7 %; HEMATOCRIT 42.3 % (30.0-46.0); HEMOGLOBIN 14.2 g/dL (10.0-15.0); IMMATURE GRANULOCYTE % 0.1 %; LYMPHOCYTE # 2.7 K/uL (0.8-4.0); LYMPHOCYTE % 30.3 %; MCH 31.8 pg (27.0-34.0); MCHC 33.6 gm/dL (32.0-36.5); MCV 94.8 fl (83.0-98.0); MONOCYTE # 0.8 K/uL (0.0-1.0); MONOCYTE % 8.6 %; MPV 10.9 fl (9.4-12.4); NEUTROPHIL % 56.7 %; NRBC % 0 /100WBC (0-0.00); PLATELET COUNT 243 K/uL (150-450); RBC 4.46 M/uL (3.00-5.00); RDW-CV 12.1 % (11.9-14.6); WBC 8.8 K/uL (4.0-11.0)
[2017-01-03 17:14] LABS: INR - (THERAPEUTIC) 0.9 (0.9-1.1); PROTIME 9.7 SECONDS (9.6-11.1); PTT 28 SECONDS (25-32)
[2017-01-03 17:18] LABS: ALBUMIN 3.9 gm/dL (3.5-5.0); ANION GAP 11.1 (10.0-19.0); BLOOD UREA NITROGEN 15 mg/dL (6-24); CALCIUM 10.3 mg/dL (8.5-10.5); CHLORIDE 110 mMol/L (96-110); CO2 25 mMol/L (22-32); CREATININE 0.6 mg/dL (0.5-1.1); ESTIMATED GFR (MDRD EQUATION) > 60; POTASSIUM 4.1 mMol/L (3.7-5.1); SODIUM 142 mMol/L (135-145)
[2017-01-03 18:24] LABS: BILIRUBIN URINE NEGATIVE (NEGATIVE); BLOOD URINE 25 /UL (NEGATIVE); COLOR URINE YELLOW (YELLOW); GLUCOSE URINE NEGATIVE (NEGATIVE); KETONE URINE NEGATIVE (NEGATIVE); LEUKOCYTES URINE NEGATIVE /UL (NEGATIVE); NITRITE URINE NEGATIVE (NEGATIVE); PROTEIN URINE NEGATIVE (NEGATIVE); SPEC GRAVITY URINE 1.025 (1.003-1.035); TURBIDITY URINE CLEAR (CLEAR); UROBILINOGEN URINE NORMAL (NORMAL)
[2017-01-03] MEDS ORDERED: VITAMIN B-12500 MCG PO (18:27)
[2017-01-03 18:33] LABS: BACTERIA URINE RARE (NEGATIVE); WBC URINE 0-2 #/HPF (NEGATIVE)
--- NOTE | 2017-01-03 19:03 | NUR ---
Patient is 81 yo female admitted this evening from the ER with large stroke affecting her right side. states patient has not been able to speak today at all and get her words out. she was able to walk to the car and walk into the ER. states she is getting worse as she as been here. He states "she doesn't even seem to recognize me now." Dr. Edgra in to visit with and assess patient during interview. Patient has IV infusing in left forearm without erythema or edema noted at site. Education is given to and encouraged to notify staff if he sees anything different going on with patient as he knows her best. he seems to understand at this time. pneumatics are on bilat. fall and allergy bracelets are in place. patient has several allergies, is unable to confirm them. call light is within reach. Report is given to night RN.
[2017-01-03] MEDS ORDERED: ASPIRIN LO-DOSE81 MG PO (19:49)
--- NOTE | 2017-01-04 02:40 | NUR ---
Significant Event: Pt is alert. Speech very aphasic and slurred unable to tell orientation. R) side slight movement unable to wiggle fingers or toes to commands, no effort against gravity, does withdrawl to pain. Has R) sided visual neglect eyes deviate toards the L). R) eye no reaction to light. Has facial droop. Able to follow commands on L) side no weakness. NIHSS 19. Dr. Edgar is aware of scale. Up full lift. Ultra high fall risk. On tele SR. SBP in 150s-170s. IV to L) forearm running NS at 100ml/hr. Guzman placed good urine output. No complaints of pain. RA lungs clear. NPO. Follow up:
[2017-01-04 06:15] LABS: BILIRUBIN URINE NEGATIVE (NEGATIVE); BLOOD URINE 150 /UL (NEGATIVE); COLOR URINE YELLOW (YELLOW); GLUCOSE URINE NEGATIVE (NEGATIVE); KETONE URINE NEGATIVE (NEGATIVE); LEUKOCYTES URINE 25 /UL (NEGATIVE); NITRITE URINE NEGATIVE (NEGATIVE); PROTEIN URINE NEGATIVE (NEGATIVE); TURBIDITY URINE CLEAR (CLEAR); UROBILINOGEN URINE NORMAL (NORMAL)
[2017-01-04 06:35] LABS: BACTERIA URINE MODERATE (NEGATIVE); EPITHELIAL URINE 0-2 #/HPF (NEGATIVE); MUCUS URINE 1+ (NEGATIVE)
--- NOTE | 2017-01-04 09:18 | NUR ---
CONSULT RECEIVED PER STROKE PROTOCOL. WILL PROVIDE DIET ED PRIOR TO DC APPROPRIATE.
--- NOTE | 2017-01-04 12:26 | NUR ---
[id number] Matias in the hallway re:Mary and her acceptance to [facility]. Per Dr. Matias, he feels like she would be a great canidate, he would like for ST to see her first and then when [facility] had a bed open he would like to take her. I phoned over and left a VM with Jackie to see when they might have a bed open for her. Asked that she call me back once she had reviewed Mary's information and to let me know if/when they could accept her. Will continue to follow and assist.
--- NOTE | 2017-01-04 13:59 | NUR ---
Significant Event: Patient aphasic with minimal words clear. R) facial droop. Neglect to entire right side. R) pupil non-reactive. L) pupil brisk and 2mm. Very miniamla movement to right upp and lower extremities. NIHSS 19. VSS. HTN. 160-170s. HR 70s. Guzman in place draining yellow urine. BS active X4. Smear BM this shift. L) FA PIV infusing with no complications. Full lift. Accuchecks Q6H. Modified barium swallow this shift. NPO as of right now. No S/S of pain. at bedside. Pleasant and cooperative with cares. Dr Matthews consulted. Follow up: GIR[facility]???
[2017-01-05 04:09] LABS: BASOPHIL # 0.1 K/uL (0.0-0.2); BASOPHIL % 0.8 %; EOSINOPHIL % 0.3 %; HEMATOCRIT 40.1 % (30.0-46.0); HEMOGLOBIN 13.6 g/dL (10.0-15.0); IMMATURE GRANULOCYTE % 0.3 %; LYMPHOCYTE # 2.1 K/uL (0.8-4.0); LYMPHOCYTE % 17.6 %; MCHC 33.9 gm/dL (32.0-36.5); MCV 94.4 fl (83.0-98.0); MONOCYTE % 8.4 %; MPV 10.7 fl (9.4-12.4); NEUTROPHIL # (ANC) 8.6 K/uL (1.8-7.8); NEUTROPHIL % 72.6 %; NRBC % 0 /100WBC (0-0.00); PLATELET COUNT 222 K/uL (150-450); RBC 4.25 M/uL (3.00-5.00); RDW-CV 12.1 % (11.9-14.6); WBC 11.9 K/uL (4.0-11.0)
--- NOTE | 2017-01-05 04:22 | NUR ---
Significant Event: The patient is Alert, aphasic and says very minimal words. NIHSS 16. Right extremities weak with slight movement. Moves left extremities spontaneously and to command. VSS, Hypertensive. On room air. No signs of symptoms of pain. Guzman draining yellow urine. PIV to the Left forearm infusing NS at 100ml/hr. Accuc checks Q6H. Up with Full Lift. Pupils are 3mm and Brisk bilaterally. NPO. Follow up:
[2017-01-05 04:32] LABS: ANION GAP 11.7 (10.0-19.0); BLOOD UREA NITROGEN 8 mg/dL (6-24); CALCIUM 9.3 mg/dL (8.5-10.5); CHLORIDE 110 mMol/L (96-110); CO2 23 mMol/L (22-32); CREATININE 0.5 mg/dL (0.5-1.1); ESTIMATED GFR (MDRD EQUATION) > 60; MAGNESIUM 1.9 mg/dL (1.3-2.6); POTASSIUM 3.7 mMol/L (3.7-5.1); SODIUM 141 mMol/L (135-145)
--- NOTE | 2017-01-05 14:29 | NUR ---
Call from Radha with [facility], she states she talked with the family and they would like to explore SNF options for Mary upon discharge. They would like for her to have a skilled stay at first and then if she can't tolerate it, they would switch her over to Hospice. I let her know that I would come by and talk with family later this afternoon and provide them with resources. I printed out a list of SNFs in the community and stopped by Jaime's room. Introduced myself and CM role to them. Let them know that I had called all 4 SNFs in [facility], all had female beds open for Mary to possibly go to. I gave them the list of contact information and addresses to all of them in [facility]. Encouraged them to go and tour them and then phone me with the top choices after they were done. In the meantime, I did go ahead an fax formal referrals to all SNFs to see if they might be able to accept upon discharge. I will wait to hear back from family on what the top choice might be and then continue to work on placement for Mary at that facilty. No other questions, needs or concerns. Will continue to follow and assist. Plan SNF upon discharge. Updated Jackie on GIR[facility] that we were looking towards SNF route rather than GIRP route as I had previously mentioned to her that we might need a GIRP bed for Mary upon discharge.
--- NOTE | 2017-01-05 16:28 | NUR ---
Significant Event:PT IS APHASIC. WILL SAY SOME YES/NO TO SOME QUESTIONS BUT THE DAY HAS GONE ON. SHE HAS NOT BEEN SPEAKING MUCH. PUPIL ARE EQUAL AND REACTIVE. FOLLOWS COMMANDS SOMETIMES. R) SIDE HAS MINIMAL MOVMENT. LEFT LEG WAS WEAK. APPEARS TO HAVE LOSS OF VISUAL FIELD TO THE RIGHT. NIHSS 23. CLEAR LUNGS SOUNDS WITH CONGESTED COUGH NOTED. BENDER DRAINING YELLOW URINE. 2A FULL LIFT. PIV L) FA. NO BM THIS SHIFT. Q6H ACCUCHECKS. NO SS. LOOKING FOR PLACEMENT. NPO. SPEECH ASSESSED. PT HAD TROUBLE WITH SECRETIONS. Follow up:MONITOR LUNG SOUNDS.
--- NOTE | 2017-01-06 04:35 | NUR ---
Significant Event: Pt is alert orientation unable to assess due to aphasia. Pt able to say yes and no at times otherwise words garbled. Follows commands at times. R) side upper and lower extremity little to no movement. R) sided facial droop. R) sided neglect. L) lower extremity has effort against gravity. L) upper extreity has drift. Up full lift. On tele SR. RA lungs clear. SBP in 150s and 160s. Guzman good urine output. Last BM 01/04. NPO. IV to L) forearm running NS at 100ml/hr. Denies pain. Accuchecks AC&HS. Follow up: Looking for placement
--- NOTE | 2017-01-06 11:52 | NUR ---
Social visit with Mary's re: SNF options. He tells me that they looked at all SNFs except [facility] but they were planning on looking at them later today. He says that Samantha from [facility] came up to talk with them this morning and she stated that they couldn't accept. I phoned Samantha after my conversation with him and Samantha did tell me that they can't accept due to her being a feeder. He would like to go with [facility] as the next option and then if they say no, we will look at the other two. Radha with pallative care states that at this time, we are still trying to skill her for a short while and then switch to Hospice after that. I called Shobha at [facility], let her know that they were family's second choice, and was wondering when they were coming to take a look at her. Shobha states that she hasn't looked at the paperwork yet, but will look at it and then call me back. Will continue to follow and assist.
--- NOTE | 2017-01-06 16:44 | NUR ---
Significant Event: OPENS EYES SPONTANEOUSLY. NONVERBAL. NO S/S OF PAIN. NIHSS=25. RIGHT UPPER AND LOWER EXTREMITY WEAKNESS AND RIGHT MOUTH DROOP. DEVIATES EYES TOWARD LEFT AT TIMES. LUNG SOUNDS CLEAR WITH COUGH. TELE- FIRST DEGREE HEART BLOCK. BENDER CATH WITH 1400 OUT. FULL LIFT WITH TRANSFERS. IV TO LEFT FOREARM WITH NORMAL SALINE AT 100ML/HR. NEW ORDERS FOR PUREED DIET WITH PUDDING THICK LIQUIDS. DISCHARGE PLAN- MONITOR THROUGH WEEKEND AND SNF PLACEMENT WHEN READY POSSIBLY EARLY NEXT WEEK. NO STANDING/AMBULATING PER NEUROLOGY- OKAY FOR LIFT TRANSFERS
--- NOTE | 2017-01-07 07:27 | NUR ---
Significant Event: Patient was alert to drowsy this shift. Was nonverbal. Right arm and leg no effort against gravity. Right facial droop. Apashic. NIHSS-23. Keep BP's less than 210/90 give labetalol- goal is to be between 160-120's. Room air- c/d throughout. Puree diet- pudding thick fluids. Only out of bed with full lift. PIV in left wrist with NS at 100. Accu checks q6h. Guzman cath. tq2h. Follow up: Monitor blood glucose. NIHSS.
--- NOTE | 2017-01-07 10:34 | NUR ---
A - NUT F/U. ORAL DIET STARTED. NON-VERBAL. LABS: ACCUCHECK WNL-REAS, GLU 118 MEDS: IVF, PROTONIX DIET: PUREED W/ PUDDING THICK LIQUIDS. INTAKE: SIPS NEEDS: [id number] KCAL, 58-73 G PRO D - INADEQUATE NUTRIENT INTAKE R/T DIFFICULTY CHEWING/SWALLOWING AEB DIET ORDER HX, NEED FOR ALTERED TEXTURES/CONSISTENCIES, INTAKE RECORD. I - GOAL FOR INCREASED ORAL INTAKE. WILL ADD ENSURE PUDDING TID. WILL DEFER DIET ED AT THIS TIME D/T NEED FOR PUREED, PUDDING THICK DIET. M/E - WILL MONITOR INTAKE F/U IN 3-5 DAYS.
--- NOTE | 2017-01-07 19:09 | NUR ---
Significant Event: Alert, nonverbal, lifts LUE when told nurse was taking her B/P. non-verbal, drowsy/falls asleep quickly during assessments. frequent oral cares given, unable to swallow when attempted to feed patient. turned q 2hrs, and visitors @ bedside, henri patent, IVF L)FA, CT head this afternoon R)foot drop boot, Follow up: [facility].
--- NOTE | 2017-01-08 05:29 | NUR ---
Significant Event: Patient is alert at times but is very drowsy. Does not always follow commands. Guzman Catheter. Turn q2h. Oral cares. Pudding thicken liquids given-did fair. Comfort [facility]. Vital signs once a shift. Output 750. Bath given. Follow up: reposition q2h.
--- NOTE | 2017-01-08 17:13 | NUR ---
COMFORT CARES Significant Event: Alert/opens eyes to verbal stimulation, non-verbal, frequent oral cares given, does not swallow anything oral, roxinol given for restlessness & noisey breathing, at bedside. saline lock L)FA, henri patent. Follow up: reposition per family request
--- NOTE | 2017-01-09 04:29 | NUR ---
Significant Event: PATIENT IS COMFORT CARES. RESTLESS AT TIMES. PRN MEDICATIONS GIVEN. ORAL CARES. BENDER CATH PATENT & CATHETER CARES. REPOSITION Q2H. TACHYPENIC AT TIMES. NON-VERBAL. L) FA PIV SL'D-FLUSHES WELL. Follow up: MONITOR. PALLIATIVE TO SEE PATIENT TODAY.
--- NOTE | 2017-01-09 11:22 | NUR ---
Call to TCU admission phone, talked with Oksana, let her know that Mary was switched to comfort cares over the weekend and we would like to transfer her to them if we could as soon as possible. She states they will do some looking and see when they could possible accept her. Packet started, orders printed and ID Screen was completed and put in the packet. Updated Mary's to the possiblity of her moving to TCU as soon as later this afternoon, he was fine with this. [facility], updated her to the plan, she was also in agreement with it. I saw Dr. Babcock up on the floor so I updated him to the plan as well, he was also in agreement with TCU on [facility] as soon as they had a bed. Will await call back from Oksana on when they would be able to accept and then update the appropriate parties. Will continue to follow and assist.
--- NOTE | 2017-01-09 12:56 | NUR ---
Significant Event: on comfort cares related to ischemic stroke. opens eyes spontaneously and to verbal and painful stimuli. follows commands with left upper extremity. nonverbal. álvarez cath patent with dark yellow output. room air. repiratory coarse at times. suppository adminitered for bowel regulation this am. prn morphine for pain management. IV to left wrist saline locked. reposition q 2 hours/prn. NPO. frequent oral cares. at side since about 0730. plan- transfer to TCU at 1400.
== END 2017-01-09 14:37 | DRG 65 ==
LOC: GMED 16:42 → GNTU 17:19
PROVIDERS: Hospitalist; Nurse Practitioner Family; Specialist; ADMIT Internal Medicine
DX: I63.132 Cerebral infarction due to embolism of left carotid artery (principal); G81.91 Hemiplegia, unspecified affecting right dominant side; R47.01 Aphasia; I10 Essential (primary) hypertension; Z85.3 Personal history of malignant neoplasm of breast; Z87.891 Personal history of nicotine dependence; F32.9 Major depressive disorder, single episode, unspecified; Z51.5 Encounter for palliative care; E78.5 Hyperlipidemia, unspecified; Z66 Do not resuscitate; R13.10 Dysphagia, unspecified
CPT/HCPCS: C9113; G0378; G8978; G8979; G8980; G8993; G8994; G8995; J1630; J2270; J7030

== ENCOUNTER 2017-01-09 14:49 | Inpatient (IN) | payer MEDICARE, OTHER ==
[~2017-01-09] VITALS: Ht 160 cm; Wt 60.9 kg
--- NOTE | ~2017-01-09 | DS ---
PATIENT'S NAME: DVEONTE HEATON [facility] AGE: 81 Y [address] ROOM: [place] [place] [address] LOCATION: [facility] ADMIT DATE: 01/09/2017 Discharge Summary DISCHARGE DATE: 01/17/2017 FAMILY PHYSICIAN: Aldo Dee MD ATTENDING PHYSICIAN: Keith Wells DISCHARGE STATUS: . SUMMARY OF HOSPITALIZATION: This is an 81-year-old female, who was transferred to [facility] Transitional Care unit on comfort measures subsequent to a large ischemic CVA on the left and right hemiplegia. The patient was made comfort care before being transferred to transitional care. She was made comfortable and followed by Hospice/Palliative Care and on January 17, 2017. MD ZIGGY WAKEFIELD/waleska /[id number] d: 01/31/17 0811 t: 02/16/17 0505, DISCHARGE SUMMARY
--- NOTE | ~2017-01-09 | DS ---
PATIENT'S NAME: DEVONTE HEATON [facility] AGE: 81 Y [address] ROOM: [facility] [place], [place] [address] LOCATION: [facility] ADMIT DATE: 01/03/2017 Discharge Summary DISCHARGE DATE: 01/09/2017 FAMILY PHYSICIAN: Aldo Dee MD ATTENDING PHYSICIAN: Thelma Babcock ADDENDUM: Please refer to dictation by Dr. Palencia for hospital course. In summary, the patient was able to be transferred to transitional care unit on comfort measures on 01/09/2017. Hospitalist will continue to follow as well as Palliative Care. MEDICATIONS AT THE TIME OF DISCHARGE: 1. Acetaminophen 650 mg rectally q.4 hours p.r.n. 2. Acetaminophen 650 mg orally q.4 hours p.r.n. 3. Atropine drops 1 to 2 q.4 h. p.r.n. 4. Dulcolax 10 mg rectally p.r.n. 5. Haloperidol 1 mg p.o. q.1 hour p.r.n. 6. Haloperidol 1 mg subcu q.1 hour p.r.n. 7. Haloperidol 1 mg IV q.1 hour p.r.n. 8. Levsin 0.125 sublingual q.4 hours p.r.n. 9. Lorazepam 0.5 mg IV q.4 hours p.r.n. 10. Lorazepam 0.5 mg q.2 hours p.o. or sublingual p.r.n. 11. Morphine sulfate 1 to 2 mg q.1 hour subcu p.r.n. 12. Morphine sulfate 5 mg p.o. or sublingual q.1 hour p.r.n. 13. Morphine sulfate 2 mg IV q.1 hour p.r.n. 14. Phenergan 12.5 q.12 hours rectally p.r.n. We do appreciate participating in this patient's care, and thank you very much for the ability to serve them while hospitalized at [facility]. Please refer to Dr. Palencia's dictation for time of service. ARUN MARISCAL FOR THELMA BABCOCK MD CINDA/modl /[id number] d: 01/10/17 1117 t: 01/31/17 0924, DISCHARGE SUMMARY
--- NOTE | ~2017-01-09 | DS ---
PATIENT'S NAME: DEVONTE HEATON [facility] AGE: 81 Y [address] ROOM: [place] [address] LOCATION: [facility] ADMIT DATE: 01/03/2017 Discharge Summary DISCHARGE DATE: FAMILY PHYSICIAN: Aldo Dee MD ATTENDING PHYSICIAN: Tonny Babcock This is an interim discharge summary given that I will not be here tomorrow because we changed shift. This summary will serve as the interim summary for the hospitalist, who is coming on tomorrow to take care of the patient. Full updates or changes and actual date of discharge and discharge medication will be dictated by the discharging hospitalist. Date of discharge to be determined. DISCHARGE DIAGNOSES: 1. 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 2. 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 3. Severe left internal carotid artery stenosis and possibly total occlusion. PAST MEDICAL HISTORY: 1. Hypertension. 2. History of breast cancer. 3. History of TIA. 4. Hyperlipidemia. 5. Diverticulosis. 6. History of cerebral aneurysm, status post clipping in the past. FOLLOWUP PLAN: The patient is currently DNR and DNI and also on comfort measure only. Palliative Care has already been following up with the patient. The plan will be continue to touch base with the Palliative Care on January 09, 2017, regarding further plan of care including disposition to transitional care unit to continue comfort measure only or looking for hospice care in another place or keep the patient here, continue comfort measure only care in the neuro trauma unit. Please also touch base with the family member including the patient's and the patient's son. I have already spoken to the patient's , and the patient's son, who are all in agreement with the current comfort measure only care. PATIENT'S NAME: DEVONTE HEATON [facility] AGE: 81 Y [address] ROOM: [place] [address] [facility] AD[facility] DATE: 01/03/2017 Discharge Summary DISCHARGE DATE: FAMILY PHYSICIAN: Aldo Dee MD ATTENDING PHYSICIAN: Tonny Babcock DISCHARGE MEDICATIONS: Discharge medications will be dictated by the discharging hospitalist on the actual day of discharge. INVESTIGATIONS DURING HOSPITALIZATION: 1. Chest x-ray on January 03, 2017, shows stable, no acute chest. 2. CT of the brain without contrast on January 03, 2017, shows evolving infarct in the left middle cerebral distribution at the parietal lobe. No hemorrhage. 3. CT of the brain without contrast on January 04, 2017, shows large evolving ischemic infarct in the left posterior cerebral. Infarct territory is more prominent than was evident on a day prior. No hemorrhage. 4. Modified barium swallow test on January 04, 2017, shows positive for aspiration. 5. Head CT without contrast on January 07, 2017, shows large evolving ischemic infarct in the left hemisphere and progress with more infarct territory evident compared with 3 days ago and further density of infarct resulting in swelling and early mass effect, which is worsened. There may be small petechial hemorrhagic transformation within the infarct territory of the left occipital lobe. LABORATORY DATA: Troponin on admission less than 0.04. On admission, white blood cell 8.8, hemoglobin 14.2, hematocrit 42.3, MCV 94.8, platelet 243. On January 05, 2017, white blood cell 11.9, hemoglobin 13.6, hematocrit 40.1, MCV 94.4, platelet 222. On admission, glucose 112, BUN 15, creatinine 0.6, sodium 142, potassium 4.1, chloride 110, CO2 of 25, calcium 10.3. On January 05, 2017, glucose 118, BUN 8, creatinine 0.5, sodium 141, potassium 3.7, chloride 110, CO2 of 23, calcium 9.3. GFR more than 60 on admission and also on January 05, 2017. LDL 66, HDL 52, triglyceride 118, total cholesterol 141 on January 04, 2017. INR 0.9 on admission. Urinalysis, negative for UTI. CONSULTATION INVOLVING CARE: 1. Palliative Care. 2. Neurology, Dr. Edgar. 3. Hospitalist Team. 4. Vascular Surgery, Dr. Matthews. 5. Rehabilitation physician, Dr. Matias. ADMISSION HISTORY AND HOSPITAL COURSE: For the complete history and physical, refer to history and physical dictated on the day of admission by Dr. Babcock on January 03, 2017. In summary, this is an 81-year-old female with past medical history as mentioned above, who was recently admitted here for TIA workup and was discharged and came back here with an over a day of confusion and slurred PATIENT'S NAME: DEVONTE HEATON [facility] AGE: 81 Y [address] ROOM: [place] [address] LOCATION: [facility] ADMIT DATE: 01/03/2017 Discharge Summary DISCHARGE DATE: FAMILY PHYSICIAN: Aldo Dee MD ATTENDING PHYSICIAN: Tonny Babcock and was brought here for evaluation and was admitted for the diagnoses mentioned in the discharge diagnoses. 1. Regarding her large ischemic cerebrovascular accident in left temporal lobe, left parietal and left occipital lobe, and left insula, and left caudate with petechial hemorrhagic transformation in the left occipital lobe with brain swelling and early mass effect in the left temporal lobe. 2. Regarding her multiple areas of ischemic infarcts with hemorrhagic transformation in the left occipital lobe and brain swelling and early mass effect in the left temporal lobe. The patient has a poor prognosis. The patient deteriorated quickly during this admission. The patient was initially treated with standard ischemic stroke protocol with permissive hypertension as well as aspirin and also statin. The patient was also getting Physical Therapy and Occupational Therapy. The patient's condition deteriorated quickly. The patient was never verbal and never oriented x3 since admission. Initially, the patient was going to get a full stroke workup including transthoracic echo as well as CTA of the carotid arteries. However, given that the patient's condition deteriorated quickly and the prognosis is very guarded, therefore, family meeting took place, and I personally spoke to Dr. Edgar as well with the patient, the patient's , and the patient's son. In this case, the patient's son is the power of game preserve manager. Given that the patient is nonverbal and not following commands and refused to eat and also failed modified barium swallow test with high aspiration risk and not following commands, Palliative Care was also consulted, and after the long family meeting, both the patient's and the patient's son, who is the power of game preserve manager, all agreed to move towards comfort measure only. The patient's and the patient's son were clearly asked if they want us to continue aggressive care including Neurosurgery consult, however, due to the poor condition and the poor quality of life, both the patient's son and the patient's did not want to pursue any more further imaging test or any more invasive procedure or testing or treatment. Therefore, the patient was put on comfort measure only, and the plan right now will be followup with Palliative Care on Monday, January 09, 2017, regarding next step in care including disposition either to transitional care unit or to outside hospice care or to home hospice care or any other option regarding her planning. MRI was never performed given that the patient had clips placed in her brain before and prior history of cerebral aneurysm. Therefore, MRI was contraindicated. CTA was also not performed given that, at this point, the patient is a comfort measure only. There is no point in moving forward with a CTA of the carotid arteries because the patient is already comfort measure only. The patient will not be transferred to the rehab facility [facility] given that the patient is comfort measure only and recovery of her neurological function at this moment is poor. 3. I have updated the patient's son and the patient's on the phone PATIENT'S NAME: DEVONTE HEATON [facility] AGE: 81 Y [address] ROOM: [place] [address] LOCATION: [facility] ADMIT DATE: 01/03/2017 Discharge Summary DISCHARGE DATE: FAMILY PHYSICIAN: Aldo Dee MD ATTENDING PHYSICIAN: Tonny Babcock several times regarding her condition, and both still agree to move forward with the comfort measure only. Therefore, the patient is currently on comfort measure only. Any further changes or updates will be dictated by the hospitalist working next week. Time spent on the day of dictation and taking care of the patient 45 minutes including updating the patient's son and the patient , and confirming they want to move forward with the comfort measure only and addressing all of their questions and concerns to their satisfaction. MD BIB PEGUERO/waleska /[id number] d: t: 01/18/17 1300, DISCHARGE SUMMARY
--- NOTE | ~2017-01-09 | DS ---
PATIENT'S NAME: DEVONTE HEATON [facility] AGE: 81 Y [address] ROOM: [place] [address] LOCATION: [facility] ADMIT DATE: 01/03/2017 Discharge Summary DISCHARGE DATE: FAMILY PHYSICIAN: Aldo Dee MD ATTENDING PHYSICIAN: Tonny Babcock This is an interim discharge summary given that I will not be here tomorrow because we changed shift. This summary will serve as the interim summary for the hospitalist, who is coming on tomorrow to take care of the patient. Full updates or changes and actual date of discharge and discharge medication will be dictated by the discharging hospitalist. Date of discharge to be determined. DISCHARGE DIAGNOSES: 1. 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 2. 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 3. Severe left internal carotid artery stenosis and possibly total occlusion. PAST MEDICAL HISTORY: 1. Hypertension. 2. History of breast cancer. 3. History of TIA. 4. Hyperlipidemia. 5. Diverticulosis. 6. History of cerebral aneurysm, status post clipping in the past. FOLLOWUP PLAN: The patient is currently DNR and DNI and also on comfort measure only. Palliative Care has already been following up with the patient. The plan will be continue to touch base with the Palliative Care on January 09, 2017, regarding further plan of care including disposition to transitional care unit to continue comfort measure only or looking for hospice care in another place or keep the patient here, continue comfort measure only care in the neuro trauma unit. Please also touch base with the family member including the patient's and the patient's son. I have already spoken to the patient's , and the patient's son, who are all in agreement with the current comfort measure only care. PATIENT'S NAME: DEVONTE HEATON [facility] AGE: 81 Y [address] ROOM: [place] [address] [facility] AD[facility] DATE: 01/03/2017 Discharge Summary DISCHARGE DATE: FAMILY PHYSICIAN: Aldo Dee MD ATTENDING PHYSICIAN: Tonny Babcock DISCHARGE MEDICATIONS: Discharge medications will be dictated by the discharging hospitalist on the actual day of discharge. INVESTIGATIONS DURING HOSPITALIZATION: 1. Chest x-ray on January 03, 2017, shows stable, no acute chest. 2. CT of the brain without contrast on January 03, 2017, shows evolving infarct in the left middle cerebral distribution at the parietal lobe. No hemorrhage. 3. CT of the brain without contrast on January 04, 2017, shows large evolving ischemic infarct in the left posterior cerebral. Infarct territory is more prominent than was evident on a day prior. No hemorrhage. 4. Modified barium swallow test on January 04, 2017, shows positive for aspiration. 5. Head CT without contrast on January 07, 2017, shows large evolving ischemic infarct in the left hemisphere and progress with more infarct territory evident compared with 3 days ago and further density of infarct resulting in swelling and early mass effect, which is worsened. There may be small petechial hemorrhagic transformation within the infarct territory of the left occipital lobe. LABORATORY DATA: Troponin on admission less than 0.04. On admission, white blood cell 8.8, hemoglobin 14.2, hematocrit 42.3, MCV 94.8, platelet 243. On January 05, 2017, white blood cell 11.9, hemoglobin 13.6, hematocrit 40.1, MCV 94.4, platelet 222. On admission, glucose 112, BUN 15, creatinine 0.6, sodium 142, potassium 4.1, chloride 110, CO2 of 25, calcium 10.3. On January 05, 2017, glucose 118, BUN 8, creatinine 0.5, sodium 141, potassium 3.7, chloride 110, CO2 of 23, calcium 9.3. GFR more than 60 on admission and also on January 05, 2017. LDL 66, HDL 52, triglyceride 118, total cholesterol 141 on January 04, 2017. INR 0.9 on admission. Urinalysis, negative for UTI. CONSULTATION INVOLVING CARE: 1. Palliative Care. 2. Neurology, Dr. Edgar. 3. Hospitalist Team. 4. Vascular Surgery, Dr. Matthews. 5. Rehabilitation physician, Dr. Matias. ADMISSION HISTORY AND HOSPITAL COURSE: For the complete history and physical, refer to history and physical dictated on the day of admission by Dr. Babcock on January 03, 2017. In summary, this is an 81-year-old female with past medical history as mentioned above, who was recently admitted here for TIA workup and was discharged and came back here with an over a day of confusion and slurred PATIENT'S NAME: DEVONTE HEATON [facility] AGE: 81 Y [address] ROOM: [place] [address] LOCATION: [facility] ADMIT DATE: 01/03/2017 Discharge Summary DISCHARGE DATE: FAMILY PHYSICIAN: Aldo Dee MD ATTENDING PHYSICIAN: Tonny Babcock and was brought here for evaluation and was admitted for the diagnoses mentioned in the discharge diagnoses. 1. Regarding her large ischemic cerebrovascular accident in left temporal lobe, left parietal and left occipital lobe, and left insula, and left caudate with petechial hemorrhagic transformation in the left occipital lobe with brain swelling and early mass effect in the left temporal lobe: The patient has a poor prognosis. The patient deteriorated quickly during this admission. The patient was initially treated with standard ischemic stroke protocol with permissive hypertension as well as aspirin and also statin. The patient was also getting Physical Therapy and Occupational Therapy. The patient's condition deteriorated quickly. The patient was never verbal and never oriented x3 since admission. Initially, the patient was going to get a full stroke workup including transthoracic echo as well as CTA of the carotid arteries. However, given that the patient's condition deteriorated quickly and the prognosis is very guarded, therefore, family meeting took place, and I personally spoke to Dr. Edgar as well with the patient, the patient's , and the patient's son. In this case, the patient's son is the power of managing attorney. Given that the patient is nonverbal and not following commands and refused to eat and also failed modified barium swallow test with high aspiration risk and not following commands, Palliative Care was also consulted, and after the long family meeting, both the patient's and the patient's son, who is the power of managing attorney, all agreed to move towards comfort measure only. The patient's and the patient's son were clearly asked if they want us to continue aggressive care including Neurosurgery consult, however, due to the poor condition and the poor quality of life, both the patient's son and the patient's did not want to pursue any more further imaging test or any more invasive procedure or testing or treatment. Therefore, the patient was put on comfort measure only, and the plan right now will be followup with Palliative Care on Monday, January 09, 2017, regarding next step in care including disposition either to transitional care unit or to outside hospice care or to home hospice care or any other option regarding her planning. MRI was never performed given that the patient had clips placed in her brain before and prior history of cerebral aneurysm. Therefore, MRI was contraindicated. CTA was also not performed given that, at this point, the patient is a comfort measure only. There is no point in moving forward with a CTA of the carotid arteries because the patient is already comfort measure only. The patient will not be transferred to the rehab facility [facility] given that the patient is comfort measure only and recovery of her neurological function at this moment is poor. 2. I have updated the patient's son and the patient's on the phone PATIENT'S NAME: DEVONTE HEATON [facility] AGE: 81 Y [address] ROOM: [place] [address] LOCATION: [facility] ADMIT DATE: 01/03/2017 Discharge Summary DISCHARGE DATE: FAMILY PHYSICIAN: Aldo Dee MD ATTENDING PHYSICIAN: Tonny Babcock several times regarding her condition, and both still agree to move forward with the comfort measure only. Therefore, the patient is currently on comfort measure only. Any further changes or updates will be dictated by the hospitalist working next week. Time spent on the day of dictation and taking care of the patient 45 minutes including updating the patient's son and the patient , and confirming they want to move forward with the comfort measure only and addressing all of their questions and concerns to their satisfaction. DANYELLE SULLIVAN MD CC/modl /[id number] d: 01/08/172210 t: 01/19/17 0211, DISCHARGE SUMMARY
--- NOTE | ~2017-01-09 | DS ---
PATIENT'S NAME: DEVONTE HEATON [facility] AGE: 81 Y [address] ROOM: [facility] [place], [place] [address] LOCATION: [facility] ADMIT DATE: 01/03/2017 Discharge Summary DISCHARGE DATE: 01/09/2017 FAMILY PHYSICIAN: Aldo Dee MD ATTENDING PHYSICIAN: Thelma Babcock ADDENDUM: Please refer to dictation by Dr. Palencia for hospital course. In summary, the patient was able to be transferred to transitional care unit on comfort measures on 01/09/2017. Hospitalist will continue to follow as well as Palliative Care. MEDICATIONS AT THE TIME OF DISCHARGE: 1. Acetaminophen 650 mg rectally q.4 hours p.r.n. 2. Acetaminophen 650 mg orally q.4 hours p.r.n. 3. Atropine drops 1 to 2 q.4 h. p.r.n. 4. Dulcolax 10 mg rectally p.r.n. 5. Haloperidol 1 mg p.o. q.1 hour p.r.n. 6. Haloperidol 1 mg subcu q.1 hour p.r.n. 7. Haloperidol 1 mg IV q.1 hour p.r.n. 8. Levsin 0.125 sublingual q.4 hours p.r.n. 9. Lorazepam 0.5 mg IV q.4 hours p.r.n. 10. Lorazepam 0.5 mg q.2 hours p.o. or sublingual p.r.n. 11. Morphine sulfate 1 to 2 mg q.1 hour subcu p.r.n. 12. Morphine sulfate 5 mg p.o. or sublingual q.1 hour p.r.n. 13. Morphine sulfate 2 mg IV q.1 hour p.r.n. 14. Phenergan 12.5 q.12 hours rectally p.r.n. We do appreciate participating in this patient's care, and thank you very much for the ability to serve them while hospitalized at [facility]. Please refer to Dr. Palencia's dictation for time of service. ARUN MARISCAL FOR THELMA BABCOCK MD CINDA/modl /[id number] d: 01/10/17 1117 t: 01/18/17 1302, DISCHARGE SUMMARY
--- NOTE | ~2017-01-09 | DS ---
PATIENT'S NAME: DEVONTE HEATON [facility] AGE: 81 Y [address] ROOM: [facility] [place], [place] [address] LOCATION: [facility] ADMIT DATE: 01/03/2017 Discharge Summary DISCHARGE DATE: 01/09/2017 FAMILY PHYSICIAN: Aldo Dee MD ATTENDING PHYSICIAN: Thelma Babcock ADDENDUM: Please refer to dictation by Dr. Palencia for hospital course. In summary, the patient was able to be transferred to transitional care unit on comfort measures on 01/09/2017. Hospitalist will continue to follow as well as Palliative Care. MEDICATIONS AT THE TIME OF DISCHARGE: 1. Acetaminophen 650 mg rectally q.4 hours p.r.n. 2. Acetaminophen 650 mg orally q.4 hours p.r.n. 3. Atropine drops 1 to 2 q.4 h. p.r.n. 4. Dulcolax 10 mg rectally p.r.n. 5. Haloperidol 1 mg p.o. q.1 hour p.r.n. 6. Haloperidol 1 mg subcu q.1 hour p.r.n. 7. Haloperidol 1 mg IV q.1 hour p.r.n. 8. Levsin 0.125 sublingual q.4 hours p.r.n. 9. Lorazepam 0.5 mg IV q.4 hours p.r.n. 10. Lorazepam 0.5 mg q.2 hours p.o. or sublingual p.r.n. 11. Morphine sulfate 1 to 2 mg q.1 hour subcu p.r.n. 12. Morphine sulfate 5 mg p.o. or sublingual q.1 hour p.r.n. 13. Morphine sulfate 2 mg IV q.1 hour p.r.n. 14. Phenergan 12.5 q.12 hours rectally p.r.n. We do appreciate participating in this patient's care, and thank you very much for the ability to serve them while hospitalized at [facility]. Please refer to Dr. Palencia's dictation for time of service. ARUN MARISCAL FOR THELMA BABCOCK MD CINDA/modl /[id number] d: 01/10/17 1117 t: 01/18/17 1304, DISCHARGE SUMMARY
--- NOTE | ~2017-01-09 | DS ---
PATIENT'S NAME: DEVON[facility] AGE: 81 Y [address] ROOM: [place] [address] LOCATION: [facility] ADMIT DATE: 01/03/2017 Discharge Summary DISCHARGE DATE: FAMILY PHYSICIAN: Aldo Dee MD ATTENDING PHYSICIAN: Tonny Babcock This is an interim discharge summary given that I will not be here tomorrow because we changed shift. This summary will serve as the interim summary for the hospitalist, who is coming on tomorrow to take care of the patient. Full updates or changes and actual date of discharge and discharge medication will be dictated by the discharging hospitalist. Date of discharge to be determined. DISCHARGE DIAGNOSES: 1. 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 2. 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 3. Severe left internal carotid artery stenosis and possibly total occlusion. PAST MEDICAL HISTORY: 1. Hypertension. 2. History of breast cancer. 3. History of TIA. 4. Hyperlipidemia. 5. Diverticulosis. 6. History of cerebral aneurysm, status post clipping in the past. FOLLOWUP PLAN: The patient is currently DNR and DNI and also on comfort measure only. Palliative Care has already been following up with the patient. The plan will be continue to touch base with the Palliative Care on January 09, 2017, regarding further plan of care including disposition to transitional care unit to continue comfort measure only or looking for hospice care in another place or keep the patient here, continue comfort measure only care in the neuro trauma unit. Please also touch base with the family member including the patient's and the patient's son. I have already spoken to the patient's , and the patient's son, who are all in agreement with the current comfort measure only care. PATIENT'S NAME: DEV[facility] AGE: 81 Y [address] ROOM: [place] [address] [facility] ADMIT DATE: 01/03/2017 Discharge Summary DISCHARGE DATE: FAMILY PHYSICIAN: Aldo Dee MD ATTENDING PHYSICIAN: Tonny Babcock DISCHARGE MEDICATIONS: Discharge medications will be dictated by the discharging hospitalist on the actual day of discharge. INVESTIGATIONS DURING HOSPITALIZATION: 1. Chest x-ray on January 03, 2017, shows stable, no acute chest. 2. CT of the brain without contrast on January 03, 2017, shows evolving infarct in the left middle cerebral distribution at the parietal lobe. No hemorrhage. 3. CT of the brain without contrast on January 04, 2017, shows large evolving ischemic infarct in the left posterior cerebral. Infarct territory is more prominent than was evident on a day prior. No hemorrhage. 4. Modified barium swallow test on January 04, 2017, shows positive for aspiration. 5. Head CT without contrast on January 07, 2017, shows large evolving ischemic infarct in the left hemisphere and progress with more infarct territory evident compared with 3 days ago and further density of infarct resulting in swelling and early mass effect, which is worsened. There may be small petechial hemorrhagic transformation within the infarct territory of the left occipital lobe. LABORATORY DATA: Troponin on admission less than 0.04. On admission, white blood cell 8.8, hemoglobin 14.2, hematocrit 42.3, MCV 94.8, platelet 243. On January 05, 2017, white blood cell 11.9, hemoglobin 13.6, hematocrit 40.1, MCV 94.4, platelet 222. On admission, glucose 112, BUN 15, creatinine 0.6, sodium 142, potassium 4.1, chloride 110, CO2 of 25, calcium 10.3. On January 05, 2017, glucose 118, BUN 8, creatinine 0.5, sodium 141, potassium 3.7, chloride 110, CO2 of 23, calcium 9.3. GFR more than 60 on admission and also on January 05, 2017. LDL 66, HDL 52, triglyceride 118, total cholesterol 141 on January 04, 2017. INR 0.9 on admission. Urinalysis, negative for UTI. CONSULTATION INVOLVING CARE: 1. Palliative Care. 2. Neurology, Dr. Edgar. 3. Hospitalist Team. 4. Vascular Surgery, Dr. Matthews. 5. Rehabilitation physician, Dr. Matias. ADMISSION HISTORY AND HOSPITAL COURSE: For the complete history and physical, refer to history and physical dictated on the day of admission by Dr. Babcock on January 03, 2017. In summary, this is an 81-year-old female with past medical history as mentioned above, who was recently admitted here for TIA workup and was discharged and came back here with an over a day of confusion and slurred PATIENT'S NAME: [facility] AGE: 81 Y [address] ROOM: [place] [address] LOCATION: [facility] ADMIT DATE: 01/03/2017 Discharge Summary DISCHARGE DATE: FAMILY PHYSICIAN: Aldo Dee MD ATTENDING PHYSICIAN: Tonny Babcock and was brought here for evaluation and was admitted for the diagnoses mentioned in the discharge diagnoses. 1. Regarding her large ischemic cerebrovascular accident in left temporal lobe, left parietal and left occipital lobe, and left insula, and left caudate with petechial hemorrhagic transformation in the left occipital lobe with brain swelling and early mass effect in the left temporal lobe: The patient has a poor prognosis. The patient deteriorated quickly during this admission. The patient was initially treated with standard ischemic stroke protocol with permissive hypertension as well as aspirin and also statin. The patient was also getting Physical Therapy and Occupational Therapy. The patient's condition deteriorated quickly. The patient was never verbal and never oriented x3 since admission. Initially, the patient was going to get a full stroke workup including transthoracic echo as well as CTA of the carotid arteries. However, given that the patient's condition deteriorated quickly and the prognosis is very guarded, therefore, family meeting took place, and I personally spoke to Dr. Edgar as well with the patient, the patient's , and the patient's son. In this case, the patient's son is the power of irrigator head. Given that the patient is nonverbal and not following commands and refused to eat and also failed modified barium swallow test with high aspiration risk and not following commands, Palliative Care was also consulted, and after the long family meeting, both the patient's and the patient's son, who is the power of irrigator head, all agreed to move towards comfort measure only. The patient's and the patient's son were clearly asked if they want us to continue aggressive care including Neurosurgery consult, however, due to the poor condition and the poor quality of life, both the patient's son and the patient's did not want to pursue any more further imaging test or any more invasive procedure or testing or treatment. Therefore, the patient was put on comfort measure only, and the plan right now will be followup with Palliative Care on Monday, January 09, 2017, regarding next step in care including disposition either to transitional care unit or to outside hospice care or to home hospice care or any other option regarding her planning. MRI was never performed given that the patient had clips placed in her brain before and prior history of cerebral aneurysm. Therefore, MRI was contraindicated. CTA was also not performed given that, at this point, the patient is a comfort measure only. There is no point in moving forward with a CTA of the carotid arteries because the patient is already comfort measure only. The patient will not be transferred to the rehab facility [facility] given that the patient is comfort measure only and recovery of her neurological function at this moment is poor. 2. I have updated the patient's son and the patient's on the phone PATIENT'S NAME: [facility] AGE: 81 Y [address] ROOM: [place] [address] LOCATION: [facility] ADMIT DATE: 01/03/2017 Discharge Summary DISCHARGE DATE: FAMILY PHYSICIAN: Aldo Dee MD ATTENDING PHYSICIAN: oTnny Babcock several times regarding her condition, and both still agree to move forward with the comfort measure only. Therefore, the patient is currently on comfort measure only. Any further changes or updates will be dictated by the hospitalist working next week. Time spent on the day of dictation and taking care of the patient 45 minutes including updating the patient's son and the patient , and confirming they want to move forward with the comfort measure only and addressing all of their questions and concerns to their satisfaction. DANYELLE SULLIVAN MD CC/modl /[id number] d: 01/08/172210 t: 01/19/172, DISCHARGE SUMMARY
[~2017-01-09 14:49] MED LIST changes: +ASPIRIN LO-DOSE81 MG PO; +VITAMIN B-12500 MCG PO
--- NOTE | 2017-01-09 16:29 | NUR ---
D: Nursing ADMISSION SUMMARY I: Nursing interventions provided to support the patient's individual plan of care R: MOBILITY-- BEDREST, L)SIDE ARM/LEG MOVEMENT NUTRITION-- NPO SKIN/INCISIONS/WOUNDS-- SKIN LOOKS GOOD, NO REDNESS, TURN Q 2 SELF CARES-- 1 ASSIST WITH ALL MOUTH CARES, BOWEL/BLADDER-- BENDER CATHETER, INCONTINENT BOWEL RESPIRATORY-- TACHYPNEA- MOUTH BREATHING PAIN-- UNABLE TO VOICE PAIN, MONITOR FOR RESTLESSNESS PSYCHOSOCIAL-- HALL, ATIVAN COMFORT CARES COGNITION-- UNABLE TO ASSESS, AT BEDSIDE, SEEMS TO UNDERSTAND WHAT YOU SAY, ALERT. 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
--- NOTE | 2017-01-10 05:20 | NUR ---
Significant Event: Patient is able to follow some commands but unable to talk at this time. Comfort measures provided and frequent positioning and oral cares completed. Guzman catheter patent. Morphine IV push given for discomfort. Patient is bedrest and NPO. Follow up:
--- NOTE | 2017-01-10 12:28 | NUR ---
Social assessment obtained from records and brief visit with . Family Overview: Patient resides in [place] and is to her [employer] Root. They have an adopted son, José Miguel, who resides in [place]. Patient has one grandson and a great grandson. Patient initally presented with a large CVA L) hemisphere and is on TCU for comfort cares/end of life care with IV medications. Patient is a DNR, DNI. POA primary is [employer] and secondary [employer]. Copy is on file. Financial: Medicare and a Supplement Physicians: Dr. Gentile, Hospitalists, and Palliative Care. Spritituality: [facility] [employer] [facility] in [place], [place] Legal Concerns: N/A SW will assist as needs arise.
--- NOTE | 2017-01-10 14:01 | NUR ---
Significant Event: Comfort cares. IVP morphine for restlessness/air hunger. Shallow labored breathing. q2 turns and oral cares. Spasm around catheter x1 today, otherwise draining fine. Left wrist SL intact, flushing. at bedside throughout shift. Follow up:
--- NOTE | 2017-01-10 15:20 | NUR ---
D: Nursing Admission Summary From PCU to TCU I: Nursing interventions provided to support the patient's individual plan of care R: MOBILITY-- 1a walker/gb. Weak shuffling gait. NUTRITION-- Needs encouragement with intake and supplements, needs to be eating greater than 50% of meals, was previously on TPN/Lipids SKIN/INCISIONS/WOUNDS-- Sore elbows, closed, wears elbow pads SELF CARES-- mod assist and set up with adls BOWEL/BLADDER-- wears brief for dribbling; last bm this am on acute RESPIRATORY-- course lung sounds; sob with activity. sats stable on rm air PAIN-- scheduled nucynta and norco prn for pain control PSYCHOSOCIAL-- at bedside and involved in cares COGNITION-- alert oriented SPECIAL NEEDS-- allow rest periods of sob BLEEDING-- heparin bid SENSORY IMPAIRMENTS/DENTAL NEEDS: TEACHING NEEDS-- INFECTION CONCERNS: being treated for sepsis; healing chest tube site RISK FOR ELOPEMENT: none NEED FOR BED/MOVEMENT ALARM: hs DISMISSAL PLANS: home with Other: P: Current plan of care reviewed and updated
--- NOTE | 2017-01-11 02:28 | NUR ---
Significant Event: Patient continues on comfort cares. Turned and repositioned every two hours and PRN. Guzman cath patent and draining clear bruno urine. Saline lock to left wrist patent flushes without difficulty. Morphine IV push given PRN for discomfort. Follow up:
--- NOTE | 2017-01-11 15:42 | NUR ---
Significant Event: Comfort cares. q2 turns and oral cares. Guzman draining dark bruno urine. Morphine IVP. at bedside today. Follow up:
--- NOTE | 2017-01-12 03:31 | NUR ---
Significant Event: comfort cares continues. Turned and repositioned every two hours and PRN. Guzman cath patent and darining dark bruno urine. Saline lock to left wrist flushes well. IV morphine given PRN. Follow up:
--- NOTE | 2017-01-12 16:22 | NUR ---
Significant Event: IN BED REPO 2 ASSIST EVERY 2 HOURS, AT BEDSIDE, PERIPHERAL IV TO L)FA FLUSHES WELL, IV MORPHINE GIVEN FOR PAIN. CAN USE HER L)ARM AND HELP REPOSITION SELF, L) LEG KICKS COVERS OFF AND ON AND SWINGS OFF BED. GRIMACES AT TIMES WITH MOVEMENTS, HOLDS HUSBANDS HAND. Follow up:
--- NOTE | 2017-01-13 03:00 | NUR ---
Significant Event: Continues on comfort care. Prieto drains a hazy yellow urine. Stroke is rt side effected. Lt arm iv flushes well Follow up:
--- NOTE | 2017-01-13 15:42 | NUR ---
Significant Event: Pt is alert, nonverbal. Does not respond to questions by shaking her head yes or no. Oral cares done with turns; has some dried coating on tongue and lips. Guzman patent, draining hazy yellow urine. Repositioned approx q 2 hrs. Noted congested cough; gave atropine drops at 1138 with relief noted. Family in room with pt all day. Gave prn morphine IV at 1130 for restlessness; relief noted. Follow up:
--- NOTE | 2017-01-14 05:02 | NUR ---
Shift Summary: Patient awake and moving left side most of the night till given Morphine 2mg IV and Ativan 0.5mg IV at 0353. Patient flaccid right side. Does not talk. Does not make eye contact or follow commands. Has álvarez cath with 250ml out this shift. Is NPO. Have done frequent oral cares due to old dry skin sloughing off in mouth. Turned q 2hr.
--- NOTE | 2017-01-14 12:48 | NUR ---
Significant Event: Comfort cares. q2 turns and oral cares today. IVP morphine given prn restlessness/ air hunger. Guzman intact, draining bruno urine. here at bedside throughout shift. Follow up:
--- NOTE | 2017-01-15 04:07 | NUR ---
Significant Event: COMFORT CARES. Q2 TRIPLETT. ORAL CARES EVERY 2 HOURS. RESTLESS MOST OF NIGHT. DOES NOT TALK, OBEY COMMANDS BUT OCCASIONALLY WILL SQUEEZE HAND TO ANSWER A QUESTION. PT FLACCID TO RIGHT SIDE. BENDER CATH WITH LUZMARIA COLORED URINE 400 OUT. Follow up:
--- NOTE | 2017-01-15 13:43 | NUR ---
Significant Event: Comfort cares. Q2 turns and oral cares. Bag bath this am. Guzman replaced this am due to leaking. PRN morphine IVP and ativan IVP given every few hours-see emar, for restlessness and anticipated pain. at bedside throughout shift. Follow up:
--- NOTE | 2017-01-16 04:04 | NUR ---
Significant Event: COMFORT CARES. Q2H TRIPLETT AND ORAL CARES. RESTLESS MOST OF THE NIGHT. PT FLACCID ON RIGHT SHIT. BENDER CATHETER WITH LUZMARIA COLORED URINE. PRN ROXANOL AND ATIVAN. Follow up:
--- NOTE | 2017-01-16 14:06 | NUR ---
Significant Event: Patient is comfort cares. Repositioning every 2 hours. Patient opens eyes but does not respond. Saline lock. Taking IV morphine. Guzman intact. Patient has been restless on and off today. at bedside. Follow up:
--- NOTE | 2017-01-17 02:11 | NUR ---
Significant Event:Patient End of Life cares. Turn Q2H. Oral CAres very frequently. SL left forearm flushes well. IV Morphine given. SL Roxanol given for pain and restlessness. Guzman small amount dark bruno urine. Continue to monitor. Follow up:
== END 2017-01-17 09:40 | disposition expired | DRG 57 ==
LOC: GSNF 14:49
PROVIDERS: ADMIT Internal Medicine
DX: I69.351 Hemiplegia and hemiparesis following cerebral infarction affecting right dominant side (principal); I69.320 Aphasia following cerebral infarction; I10 Essential (primary) hypertension; E78.5 Hyperlipidemia, unspecified; F32.9 Major depressive disorder, single episode, unspecified; Z51.5 Encounter for palliative care; I65.22 Occlusion and stenosis of left carotid artery; Z85.3 Personal history of malignant neoplasm of breast; Z66 Do not resuscitate
CPT/HCPCS: J2060; J2270